=== PATIENT | female | born 1940 ===

== ENCOUNTER 2018-11-28 12:50 | Inpatient (IN) | payer MEDICARE ==
[2018-11-28] MEDS ORDERED: PEPCID IV ONE (13:23)
[2018-11-28] MEDS ORDERED: CARAFATE PO ONE (13:24)
[2018-11-28] MEDS ORDERED: NITROSTAT SL PRN (13:25)
--- NOTE | 2018-11-28 13:25 | Emergency Department Report ---
ED General Adult HPI - General Chief complaint: Abdominal Pain Stated complaint: ABD PAIN Time Seen by Provider: 11/28/18 13:15 Source: patient, EMS (ems notes not available at time of chart dictation), RN notes reviewed, old records reviewed Mode of arrival: Stretcher Limitations: Physical Limitation - History of Present Illness Initial comments: Nephrology: Dr. Dacosta The patient is an 78-year-old female. The patient is somewhat of a poor histori an. She has a past medical history of end-stage renal disease, on dialysis Friday, , Friday. Also has a history of hypertension, hypothyroidism, presumed GERD, gastritis. As per review of old medical records, the patient has been on systemic anticoagulation in the past, eliquis, although she is not sure why. As far as the patient can recall, she's not had a DVT or pulmonary embolus She has not had atrial fibrillation that she can recall. Prior medical records did not specifically indicate why she is taking this medication. Patient reports being in her usual state of health, when she was at dialysis today, and began to have subxiphoid, epigastric pain. This pain is intermittent, it does not radiate to the back, arms or neck. There is no vomiting or diaphoresis. This is chronic shortness of breath. She reports no fevers or chills. She thinks she has slight fluid on her lungs but is not sure. She denies urinary symptoms. She reports this has not happened to her in the past. Review of her medication list indicates that she is still taking systemic anticoagulation. -: Sudden Location: abdomen Radiation: non-radiation Quality: aching, other Consistency: intermittent Improves with: none Worsens with: none Associated Symptoms: cough, loss of appetite, shortness of breath. denies: confusion, chest pain, diaphoresis, fever/chills, headaches, malaise, nausea/ vomiting, rash, seizure, syncope, weakness - Related Data Home Medications Medication Instructions Recorded Confirmed Last Taken RX: Apixaban [Eliquis] 2.5 09/07/18 09/06/18 RX: Atorvastatin Calcium 40 mg 09/07/18 09/05/18 RX: Febuxostat (Nf) [Uloric (Nf)] 40 09/07/18 Unknown RX: Labetalol [Normodyne TAB] 100 mg PO 09/07/18 09/05/18 RX: Levothyroxine Sodium 125 mcg 09/07/18 09/05/18 RX: Olmesartan (Nf) [Benicar] 100 09/07/18 09/05/18 RX: Pantoprazole [Protonix TAB] 40 mg PO QDAY 09/07/18 09/07/18 Unknown RX: Sevelamer Carbonate [Renvela] 800 mg 09/07/18 09/05/18 RX: amLODIPine [Norvasc] 10 mg PO DAILY 09/07/18 09/07/18 09/05/18 Previous Rx's Medication Instructions Recorded Last Taken Type HYDROcodone/APAP 5-325 [[place] 1 each PO Q6HR PRN #20 tablet 09/07/18 Unknown Rx 5/325] Allergies Allergy/AdvReac Type Severity Reaction Status Date / Time No Known Allergies Allergy Verified 09/04/18 10:58 ED Review of Systems ROS: Stated complaint: ABD PAIN Other details as noted in HPI Constitutional: malaise. denies: fever Eyes: denies: eye discharge ENT: denies: epistaxis Respiratory: cough, shortness of breath Cardiovascular: edema. denies: chest pain Gastrointestinal: abdominal pain Genitourinary: denies: dysuria Musculoskeletal: arthralgia, myalgia Skin: denies: lesions Neurological: weakness Psychiatric: denies: anxiety ED Past Medical Hx - Past Medical History Previous Medical History?: Yes Hx Hypertension: Yes (no antihypertensives today) Hx Heart Attack/AMI: No Hx Congestive Heart Failure: Yes Hx Diabetes: Yes Hx Renal Disease: Yes Hx Sickle Cell Disease: Yes (Has disease or trait-not sure which one) Hx Seizures: No Hx Asthma: Yes (asymptomatic recently; albuterol prn) - Surgical History Past Surgical History?: Yes Hx Pacemaker: No Hx Internal Defibrillator: No - Social History Smoking Status: Never Smoker - Medications Home Medications: Home Medications Medication Instructions Recorded Confirmed Last Taken Type HYDROcodone/APAP 5-325 [[facility] 1 each PO Q6HR PRN #20 tablet 09/07/18 Unknown Rx 5/325] RX: Apixaban [Eliquis] 2.5 09/07/18 09/06/18 History RX: Atorvastatin Calcium 40 mg 09/07/18 09/05/18 History RX: Febuxostat (Nf) [Uloric (Nf)] 40 09/07/18 Unknown History RX: Labetalol [Normodyne TAB] 100 mg PO 09/07/18 09/05/18 History RX: Levothyroxine Sodium 125 mcg 09/07/18 09/05/18 History RX: Olmesartan (Nf) [Benicar] 100 09/07/18 09/05/18 History RX: Pantoprazole [Protonix TAB] 40 mg PO QDAY 09/07/18 09/07/18 Unknown History RX: Sevelamer Carbonate [Renvela] 800 mg 09/07/18 09/05/18 History RX: amLODIPine [Norvasc] 10 mg PO DAILY 09/07/18 09/07/18 09/05/18 History ED Physical Exam - General Limitations: Physical Limitation General appearance: alert, anxious, obese - Head Head exam: Present: atraumatic, normocephalic - Eye Eye exam: Present: normal appearance, EOMI. Absent: nystagmus - ENT ENT exam: Present: normal exam, normal orophraynx, mucous membranes moist, normal external ear exam - Neck Neck exam: Present: normal inspection, full ROM. Absent: tenderness, meningismus - Respiratory Respiratory exam: Present: rhonchi. Absent: wheezes, rales, stridor - Cardiovascular Cardiovascular Exam: Present: regular rate, normal rhythm, normal heart sounds. Absent: bradycardia, tachycardia, irregular rhythm, systolic murmur, diastolic murmur, rubs, gallop - GI/Abdominal GI/Abdominal exam: Present: soft. Absent: distended, tenderness, guarding, rebound, rigid, pulsatile mass - Extremities Exam Extremities exam: Present: normal inspection (left upper extremity fistula noted, with no redness, pus or streaking. Muscular compartment soft.), pedal edema, other (2+ pulses noted in the bilateral upper, lower extremities. Compartments soft. No long bony tenderness. The pelvis is stable.). Absent: calf tenderness - Back Exam Back exam: Present: normal inspection, full ROM. Absent: tenderness, CVA tenderness (R), paraspinal tenderness, vertebral tenderness - Neurological Exam Neurological exam: Present: alert, other (Extraocular movements intact. Tongue midline. No facial droop. Facial sensation intact to light touch in the V1, V2, V3 distribution bilaterally. 5 and 5 strength in 4 extremities.. Sensation is intact to light touch in 4 extremities.). Absent: motor sensory deficit - Psychiatric Psychiatric exam: Present: normal affect, normal mood - Skin Skin exam: Present: warm, dry, intact, normal color. Absent: rash ED Course Vital Signs 11/28/18 11/28/18 11/28/18 12:58 13:00 13:04 Temperature 98 F Pulse Rate 70 72 Respiratory 18 18 Rate Blood Pressure 152/57 O2 Sat by Pulse 99 99 99 Oximetry 11/28/18 11/28/18 11/28/18 13:15 13:30 14:00 Temperature Pulse Rate 69 Respiratory 18 16 Rate Blood Pressure 149/60 152/57 O2 Sat by Pulse 98 98 99 Oximetry 11/28/18 11/28/18 11/28/18 14:30 15:10 15:30 Temperature Pulse Rate Respiratory Rate Blood Pressure 149/60 149/60 149/60 O2 Sat by Pulse 96 99 95 Oximetry 11/28/18 11/28/18 11/28/18 15:41 16:00 16:20 Temperature 97.8 F Pulse Rate 76 72 Respiratory 14 14 Rate Blood Pressure 143/59 143/59 O2 Sat by Pulse 100 100 Oximetry 11/28/18 11/28/18 11/28/18 16:30 16:40 17:05 Temperature 98.0 F Pulse Rate 73 70 70 Respiratory 12 15 20 Rate Blood Pressure 143/56 143/56 166/62 O2 Sat by Pulse 84 95 Oximetry 11/28/18 11/28/18 11/28/18 17:27 17:30 17:40 Temperature Pulse Rate Respiratory Rate Blood Pressure 111/57 111/57 O2 Sat by Pulse 93 96 99 Oximetry 11/28/18 17:50 Temperature Pulse Rate Respiratory Rate Blood Pressure 111/57 O2 Sat by Pulse 100 Oximetry - Reevaluation(s) Reevaluation #1: 11/28/18 14:09 Differential diagnosis, including but not limited to: GERD, gastritis, hiatal hernia, pancreatitis, fluid overload, hyperkalemia, pneumonia, urinary tract infection, acute coronary syndrome Assessment and plan: 78-year-old female, with nonspecific epigastric pain, intermittent since dialysis, afebrile, with reassuring vital signs, reportedly on systemic anticoagulation, without tachypnea, tachycardia, or hypoxia. Doubt pulmonary embolus. We'll treat the patient's symptoms supportively. We will obtain CT scan of the abdomen and pelvis. We will obtain x-ray of the chest. 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 Reevaluation #2: 11/28/18 15:14 The patient was a very difficult IV stick for phlebotomy. Laboratory studies demonstrate uremia, azotemia, lactic acidosis, elevated troponin and elevated lipase. Elevated troponin likely secondary to renal insufficiency, but no recent cardiac risk stratification has been noted at this hospital, we do not have prior values to compare to. Patient had a very prolonged tourniquet time secondary to being a difficult intravenous stick, and this is the most likely reason for her elevated lactic acid. Clinically doubt bacteremic illness at this time. Elevated lipase nonspecific, given epigastric pain, may have mild pancreatitis. CT scan interpretation is pending. Discussed with nephrology on-call, Dr. Staples, we will admit the patient to medical service for a cardiac risk stratification, symptom control, nephrology to follow in consultation, and will arrange inpatient dialysis. Hospital physician is paged to arrange admission. Reevaluation #3: 11/28/18 15:34 Laboratory studies also demonstrate metabolic acidosis, anion gap acidosis, likely secondary to renal insufficiency. Case is presented to the Hospital physician, Dr. Fernando, who has accepted the patient to the medical service. Reevaluation #4: 11/28/18 16:01 CT scan report is reviewed and appreciated. Suggestion of right lower lobe pneumonia is noted. Nonspecific biliary findings noted. Blood cultures, empiric antibiotic therapy ordered. Right upper quadrant ultrasound ordered. Discussed these findings with the admitting hospital physician, who agrees to follow up on ultrasound - EJ/Peripheral Line Neck L Time Out Performed: Yes Indications: nurses unable to establis Skin Cleansed in Sterile Fashion: Yes Size: 20 Dressing Placed: Tegaderm Patient Tolerated Procedure: well ED Medical Decision Making - Lab Data Result diagrams: 11/29/18 04:05 11/29/18 04:05 Vital Signs 11/28/18 11/28/18 13:04 13:15 Temperature 98 F Pulse Rate 72 Respiratory 18 18 Rate Blood Pressure 152/57 O2 Sat by Pulse 99 98 Oximetry - EKG Data -: EKG Interpreted by Mo EKG shows normal: sinus rhythm Rate: normal - EKG Data 11/28/18 14:10 Sinus, 70 bpm, left axis deviation, QTC prolonged, poor R-wave progression, motion artifact, T-wave inversions in the lateral leads, abnormal EKG, this is not consistent with ST elevation myocardial infarction, appears unchanged when compared to prior EKG from September 2018. Not consistent with ST elevation WI. - Radiology Data Radiology results: pending Critical care attestation.: If time is entered above; I have spent that time in minutes in the direct care of this critically ill patient, excluding procedure time. ED Disposition Clinical Impression: ESRD (end stage renal disease) on dialysis, Abdominal pain Disposition: OP ADMIT IP TO THIS HOSP Is pt being admited?: Yes Does the pt Need Aspirin: No Condition: Fair
[2018-11-28 14:59] LABS: Albumin 3.7 g/dL (3.9-5); Calcium 7.8 mg/dL (8.4-10.2)
[2018-11-28 15:07] LABS: Basophils # (Auto) 0.1 K/mm3 (0.0-0.1); Basophils % (Auto) 1.2 % (0.0-1.8); Eosinophils # (Auto) 0.2 K/mm3 (0.0-0.4); Eosinophils % (Auto) 2.3 % (0.0-4.3); Hematocrit 40.4 % (30.3-42.9); Lymphocytes # (Auto) 2.4 K/mm3 (1.2-5.4); Lymphocytes % (Auto) 25.1 % (13.4-35.0); Mean Corpuscular HGB Conc 32 % (30-34); Mean Corpuscular Volume 109 fl (79-97); Monocytes # (Auto) 0.9 K/mm3 (0.0-0.8); Monocytes % (Auto) 9.8 % (0.0-7.3); Platelet Count 217 K/mm3 (140-440); Red Cell Distribution Width 15.3 % (13.2-15.2)
--- NOTE | 2018-11-28 15:20 | XRay Report ---
FINAL REPORT EXAM: XR CHEST 1V AP HISTORY: dyspnea esrd TECHNIQUE: Frontal chest radiograph. PRIORS: 09/07/2018. FINDINGS: Right IJ tunnel dialysis catheter tip projects in the right atrium. Unchanged aortic calculi. Unchang ed mild cardiomegaly. No focal consolidation. No pleural effusion. No pneumothorax. No acute osseous abnormality. IMPRESSION: No acute cardiopulmonary process. Unchanged mild cardiomegaly.
--- NOTE | 2018-11-28 15:38 | History and Physical Report ---
History of Present Illness Chief complaint: I feel sick History of present illness: 78 YO Female with ESRD on HD (T,R,Sa), Hypothyroidism, SLE, Asthma, HTN, HLD, Anxiety, Anemia, CHF, DM presents to ED for evaluation. Pt states that she has been "feeling sick" over the past 4 days. Pt states that she went to her sched uled dialysis appointment today and subsequently began to experience abdominal pain. Pt states that her pain was 5/10, intermittent, localized to the epigastric region. EMS notified, and patient transported to [facility] for further care and evaluation. . Pt seen and evaluated in ED and found to have RLL Pneumonia, ESRD, Acidosis, and Biliary obstruction. Pt admitted to [facility] unit. Pt denies fever, chills, CP, Palpitations, NVD, Headache, Trauma, productive cough, or recent ill contacts. Nephrology consulted for dialysis. GI consulted for biliary obstruction. Pneumonia protocol initiated. Past History Past Medical History: diabetes, ESRD, heart failure, hypertension, hyperlipidemia, hypothyroidism Past Surgical History: Other (AV Fistula Placement) Social history: single. denies: smoking, alcohol abuse, prescription drug abuse Family history: diabetes, hypertension Medications and Allergies Allergies Allergy/AdvReac Type Severity Reaction Status Date / Time No Known Allergies Allergy Verified 09/04/18 10:58 Home Medications Medication Instructions Recorded Confirmed Last Taken Type Apixaban [Eliquis] 2.5 09/07/18 09/06/18 History Atorvastatin Calcium 40 mg 09/07/18 09/05/18 History Febuxostat (Nf) [Uloric (Nf)] 40 09/07/18 Unknown History HYDROcodone/APAP 5-325 [[place] 1 each PO Q6HR PRN #20 tablet 09/07/18 Unknown Rx 5/325] Labetalol [Normodyne TAB] 100 mg PO 09/07/18 09/05/18 History Levothyroxine Sodium 125 mcg 09/07/18 09/05/18 History Olmesartan (Nf) [Benicar] 100 09/07/18 09/05/18 History Pantoprazole [Protonix TAB] 40 mg PO QDAY 09/07/18 09/07/18 Unknown History Sevelamer Carbonate [Renvela] 800 mg 09/07/18 09/05/18 History amLODIPine [Norvasc] 10 mg PO DAILY 09/07/18 09/07/18 09/05/18 History Active Meds: Active Medications Nitroglycerin (Nitrostat) 0.4 mg SL .Q5MIN PRN PRN Reason: Chest Pain Review of Systems Constitutional: other (feeling sick), no weight loss, no weight gain, no fever, no chills Ears, nose, mouth and throat: no ear pain, no ear discharge, no tinnitis, no decreased hearing Breasts: no change in shape, no swelling, no mass Cardiovascular: no chest pain, no orthopnea, no palpitations, no rapid/irregular heart beat, no edema Respiratory: no cough, no cough with sputum, no excessive sputum, no hemoptysis, no shortness of breath Gastrointestinal: abdominal pain, no nausea, no vomiting, no diarrhea Genitourinary Female: no pelvic pain, no flank pain, no menorrhagia, no dysuria, no urinary frequency, no urgency Rectal: no pain, no incontinence, no bleeding Musculoskeletal: no neck stiffness, no neck pain, no shooting arm pain, no arm numbness/tingling, no low back pain, no shooting leg pain Integumentary: no rash, no pruritis, no redness, no sores Neurological: no head injury, no transient paralysis, no paralysis, no weakness, no parathesias, no numbness Psychiatric: no anxiety, no memory loss, no change in sleep habits, no sleep disturbances, no insomnia Endocrine: no cold intolerance, no heat intolerance, no polyphagia, no excessive thirst Hematologic/Lymphatic: no easy bruising, no easy bleeding, no lymphadenopathy, no lymphedema Allergic/Immunologic: no urticaria, no allergic rhinitis, no persistent infections, no anaphylaxis, no angioedema Exam - Constitutional Vitals: Temp Pulse Resp BP Pulse Ox 98 F 72 18 152/57 98 11/28/18 13:04 11/28/18 13:04 11/28/18 13:15 11/28/18 13:04 11/28/18 13:15 General appearance: Present: mild distress - EENT Eyes: Present: PERRL ENT: hearing intact, clear oral mucosa - Neck Neck: Present: supple, normal ROM - Respiratory Respiratory effort: normal Respiratory: right: diminished, rhonchi - Cardiovascular Heart Sounds: Present: S1 & S2. Absent: rub, click - Extremities Extremities: pulses symmetrical Extremity abnormal: edema Peripheral Pulses: within normal limits - Abdominal General gastrointestinal: Present: soft, non-tender, non-distended, normal bowel sounds Female genitourinary: Present: normal - Integumentary Integumentary: Present: clear, warm, dry - Musculoskeletal Musculoskeletal: gait normal, strength equal bilaterally - Psychiatric Psychiatric: appropriate mood/affect, intact judgment & insight - Neurologic Neurologic: CNII-XII intact, moves all extremities Results - Labs CBC & Chem 7: 11/28/18 14:34 11/28/18 14:34 Labs: Abnormal lab results 11/28/18 11/28/18 11/28/18 Range/Units 14:34 14:34 14:34 MCV 109 H (79-97) fl MCH 35 H (28-32) pg RDW 15.3 H (13.2-15.2) % [place] % (Auto) 9.8 H (0.0-7.3) % [place] # 0.9 H (0.0-0.8) K/mm3 Sodium 135 L (137-145) mmol/L Chloride 94.6 L (98-107) mmol/L BUN 58 H (7-17) mg/dL Creatinine 6.8 H (0.7-1.2) mg/dL Glucose 143 H (65-100) mg/dL Lactic Acid 2.60 H* (0.7-2.0) mmol/L Calcium 7.8 L (8.4-10.2) mg/dL Troponin T 0.113 H* (0.00-0.029) ng/mL Albumin 3.7 L (3.9-5) g/dL Lipase 112 H (13-60) units/L Assessment and Plan - Patient Problems (1) Pneumonia Current Visit: Yes Status: Acute Qualifiers: Laterality: right Lung location: lower lobe of lung Plan to address problem: Pneumonia protocol: Iv antibiotic therapy, supplemental oxygen, nebulizer therapy, blood cultures, chest x ray (2) ESRD (end stage renal disease) on dialysis Current Visit: No Status: Acute Plan to address problem: Nephrology consulted in ED, dialysis as per renal team (3) Biliary obstruction Current Visit: Yes Status: Acute Plan to address problem: CT ABdomen/Pelvis, Ultrasound abdomen, GI consulted in ED (4) CHF (congestive heart failure) Current Visit: No Status: Acute Qualifiers: Heart failure type: diastolic Heart failure chronicity: acute Qualified Code(s): I50.31 - Acute diastolic (congestive) heart failure Plan to address problem: Strict I/O, Daily weight, monitor uop q shift, chest x ray, supplemental oxygen, afterload reduction, monitor bp q shift, dialysis as per renal team. (5) DVT prophylaxis Current Visit: No Status: Acute Plan to address problem: SCD to BLE while in bed.
[2018-11-28] MEDS ORDERED: ZOFRAN IV PRN (15:40)
[2018-11-28] MEDS ORDERED: TYLENOL PO PRN (15:40)
[2018-11-28] MEDS ORDERED: SODIUM CHLORIDE FLUSH SYRINGE 10 ML IV PRN (15:40)
[2018-11-28] MEDS ORDERED: PROVENTIL IH PRN (15:40)
--- NOTE | 2018-11-28 15:48 | Cat Scan Report ---
FINAL REPORT EXAM: CT ABDOMEN PELVIS WO CON HISTORY: abd pain TECHNIQUE: CT of the abdomen and pelvis was performed without intravenous contrast. Reconstructions were included in the coronal and sagittal planes. PRIORS: None. FINDINGS: Lower thorax: Mild bibasilar atelectasis is seen. Patchy ground-glass opacities are seen in the poste rior aspect of the right lower lobe. Moderate coronary artery calculi are seen. A small pericardial e ffusion is seen. Liver: The liver is normal in attenuation. No intrahepatic biliary duct dilation. There is a simple r ight hepatic cyst. Gallbladder/ biliary system: The gallbladder is collapsed and not well evaluated. There is suggestion of mild inflammation surrounding the gallbladder. The common bile duct is likely dilated measuring u p to 12 millimeters. Spleen: Calcified splenic granulomas are seen. Pancreas: There is a heterogeneous cystic appearing lesion within pancreatic head. There is also a cy stic lesion in the pancreatic body measuring 1.6 x 1.3 centimeters. The lesion in the head of the [place] cre[place] is more difficult to measure and appears multi lobulated. Kidneys: There is a hyperdense left superior pole renal lesion measuring 8 millimeters. Several tiny hyperdense right renal lesions are seen. The kidneys appear small in size. No hydronephrosis. No dilia l or ureteral calcifications. Adrenal glands: There is a left adrenal lesion with Hounsfield unit characteristics of an adrenal chantelle noma measuring 2.0 centimeters. No right adrenal lesions. Vasculature: The abdominal aorta is nondilated. Atherosclerotic calculi are seen in the abdominal aor ta. Lymph nodes: No enlarged lymph nodes are seen in the abdomen or pelvis. Bowel, mesentery, peritoneum: No bowel obstruction. No free fluid or free air. The appendix was not d efinitively seen. Colonic diverticulosis is seen. No evidence of diverticulitis. No bowel wall thicke samuel. Urinary bladder: No filling defects are seen. Pelvis: Several probable calcified uterine fibroids are seen. Abdominal wall: Multiple small fat containing anterior abdominal wall hernias are seen. Bones: Degenerative changes are seen in the spine. Right femoral hardware is seen. A left hip prosthe sis is present. There is severe diffuse osteopenia. Probable chronic L1 compression fracture is seen. IMPRESSION: 1. Multiple nonspecific pancreatic cysts. Recommend further evaluation with pancreatic protocol CT or MRI with and without contrast. 2. Bilateral hyperdense renal lesions are incompletely characterized on this study. Recommend further evaluation with dedicated renal CT or MRI. These can be further assessed on the pancreatic imaging. 3. Left adrenal adenoma. 4. Colonic diverticulosis without diverticulitis. 5. Collapsed gallbladder with suggestion of surrounding inflammation. Consider further evaluation wit h right upper quadrant ultrasound. 6. Dilated common bile duct. If there is clinical concern for biliary obstruction, further evaluation with MRCP could be performed. 7. Probable calcifying uterine fibroids. 8. Coronary artery calculi and small pericardial effusion. 9. Bibasilar atelectasis with ground-glass opacities in the posterior aspect of the right lower lobe which may reflect pneumonia versus atelectasis. 10. Probable chronic L1 compression fracture. 11. Simple right hepatic cyst.
[2018-11-28 15:57] LABS: Bilirubin,Urine NEG (Negative); Blood,Urine NEG (Negative); Color,Urine Yellow (Yellow); Urobilinogen,Urine < 2.0 mg/dL (<2.0)
[2018-11-28 15:58] LABS: Chol/HDL Ratio 2.76 %
[2018-11-28] MEDS ORDERED: LEVAQUIN 500MG/100ML 500 MG/100 ML BAG IV ONE ×2 (15:59→23:00)
[2018-11-28] MEDS ORDERED: FLAGYL 500 MG/100 ML 500 MG/100 ML BAG IV ONE ×2 (15:59→23:00)
[2018-11-28] MEDS: SODIUM CHLORIDE FLUSH SYRINGE 10 ML IV SCH (21:11)
[2018-11-29 05:05] LABS: Calcium 7.6 mg/dL (8.4-10.2)
[2018-11-29 05:07] LABS: Basophils # (Auto) 0.1 K/mm3 (0.0-0.1); Eosinophils # (Auto) 0.3 K/mm3 (0.0-0.4); Eosinophils % (Auto) 2.5 % (0.0-4.3); Hemoglobin 11.3 gm/dl (10.1-14.3); Lymphocytes # (Auto) 2.8 K/mm3 (1.2-5.4); Lymphocytes % (Auto) 25.8 % (13.4-35.0); Mean Corpuscular HGB Conc 32 % (30-34); Mean Corpuscular Volume 107 fl (79-97); Monocytes # (Auto) 1.1 K/mm3 (0.0-0.8); Monocytes % (Auto) 10.3 % (0.0-7.3); Platelet Count 224 K/mm3 (140-440); Red Blood Count 3.26 M/mm3 (3.65-5.03); Red Cell Distribution Width 14.4 % (13.2-15.2)
--- NOTE | 2018-11-29 07:54 | Progress Note ---
Assessment and Plan Assessment and plan: 78 YO Female with ESRD on HD (T,R,Sa), Hypothyroidism, SLE, Asthma, HTN, HLD, Anxiety, Anemia, CHF, DM presents to ED for evaluation. Pt states that she has been "feeling sick" over the past 4 days. Pt states that she went to her scheduled dialysis appointment today and subsequently began to experience a bdominal pain. Per nursing tiage documentation "Patient c/o upper abdominal pain after being on hemodialysis for 1.5 hr.Abdomen soft,denies nausea. Expiratory wheexing noted" Pt states that her pain was 5/10, intermittent, localized to the epigastric region. EMS notified, and patient transported to [facility] for further care and evaluation. Pt seen and evaluated in ED and found to have RLL Pneumonia, ESRD, Acidosis, and Biliary obstruction. Pt admitted to [facility] unit. Pt denies fever, chills, CP, Palpitations, NVD, Headache, Trauma, productive cough, or recent ill contacts. Nephrology consulted for dialysis. GI consulted for biliary obstruction. While chest xray is normal patient had a CT abdomen and pelvis with multiple mirage of problems identified. Peritoneal irritation ?etiology. Multiple non specific pancreatic Cyst-?PANCREATITIS Dilated CBD Colonic Diverticulosis Possible Acute Cholecystsis Calcifying uterine fibroids L1 compression fracture- Chronic Hepatic Cyst-Right side Right lobar atalectasis with ground glass opacity- Doubt pneumonia- No fever, no white count Chronic shortness of breath ESRD on HD- TTS Stable Congestive heart failure-Diastolic Type 2 NSTEMI GERD HTN Hypothyrodisim Plan Supportive care Nephrology, GI and Cardiac consult Ultrasound abdomen- complete, evaluate Gallbladder and pancreas. Defer MRCP decision to GI if needed Incentive spirometer Trend lipase Doubt pneumonia will give one more day of abx and then hold Pain control PRN Nebs Obtain complete med rec. Called family DVT/GI prophy History Interval history: Patient seen and examined today, Denies any abdominal pain. Hospitalist Physical - Physical exam Narrative exam: VITAL SIGNS: Reviewed. GENERAL: The patient appeared well nourished and normally developed. Vital signs as documented. HEAD: No signs of head trauma. EYES: Pupils are equal. Extraocular motions intact. EARS: Hearing grossly intact. MOUTH: Oropharynx is normal. NECK: No adenopathy, no JVD. CHEST: Chest with clear breath sounds bilaterally. No wheezes, rales, or rhonchi. CARDIAC: Regular rate and rhythm. S1 and S2, without murmurs, gallops, or rubs. VASCULAR: No Edema. Peripheral pulses normal and equal in all extremities. ABDOMEN: Soft, without detectable tenderness. No sign of distention. No rebound or guarding, and no masses palpated. Bowel Sounds normal. MUSCULOSKELETAL: Good range of motion of all major joints. Extremities without clubbing, cyanosis or edema. NEUROLOGIC EXAM: Alert and oriented x 3. No focal sensory or strength deficits. Speech normal. Follows commands. PSYCHIATRIC: Mood normal. SKIN: Right chest WALL Port - Constitutional Vitals: Temp Pulse Resp BP Pulse Ox 98.4 F 67 18 136/58 100 11/29/18 02:21 11/29/18 02:21 11/29/18 02:21 11/29/18 02:21 11/29/18 02:21 General appearance: Present: mild distress Results - Labs CBC & Chem 7: 11/29/18 04:05 11/29/18 04:05 Labs: Laboratory Last Values WBC 10.9 K/mm3 (4.5-11.0) 11/29/18 04:05 RBC 3.26 M/mm3 (3.65-5.03) L 11/29/18 04:05 Hgb 11.3 gm/dl (10.1-14.3) 11/29/18 04:05 Hct 35.0 % (30.3-42.9) 11/29/18 04:05 MCV 107 fl (79-97) H 11/29/18 04:05 MCH 35 pg (28-32) H 11/29/18 04:05 MCHC 32 % (30-34) 11/29/18 04:05 RDW 14.4 % (13.2-15.2) 11/29/18 04:05 Plt Count 224 K/mm3 (140-440) 11/29/18 04:05 Lymph % (Auto) 25.8 % (13.4-35.0) 11/29/18 04:05 Placer % (Auto) 10.3 % (0.0-7.3) H 11/29/18 04:05 Eos % (Auto) 2.5 % (0.0-4.3) 11/29/18 04:05 Baso % (Auto) Nursing Consultant 11/29/18 04:05 Lymph # 2.8 K/mm3 (1.2-5.4) 11/29/18 04:05 Placer # 1.1 K/mm3 (0.0-0.8) H 11/29/18 04:05 Eos # 0.3 K/mm3 (0.0-0.4) 11/29/18 04:05 Baso # 0.1 K/mm3 (0.0-0.1) 11/29/18 04:05 Seg Neutrophils % 60.3 % (40.0-70.0) 11/29/18 04:05 Seg Neutrophils # 6.6 K/mm3 (1.8-7.7) 11/29/18 04:05 Sodium 137 mmol/L (137-145) 11/29/18 04:05 Potassium 4.8 mmol/L (3.6-5.0) 11/29/18 04:05 Chloride 95.4 mmol/L (98-107) L 11/29/18 04:05 Carbon Dioxide 26 mmol/L (22-30) 11/29/18 04:05 Anion Gap 20 mmol/L 11/29/18 04:05 BUN 71 mg/dL (7-17) H 11/29/18 04:05 Creatinine 7.7 mg/dL (0.7-1.2) H 11/29/18 04:05 Estimated GFR 5 ml/min 11/29/18 04:05 BUN/Creatinine Ratio 9 % 11/29/18 04:05 Glucose 89 mg/dL (65-100) 11/29/18 04:05 Lactic Acid 1.60 mmol/L (0.7-2.0) 11/28/18 15:26 Calcium 7.6 mg/dL (8.4-10.2) L 11/29/18 04:05 Total Bilirubin 0.30 mg/dL (0.1-1.2) 11/28/18 14:34 AST 31 units/L (5-40) 11/28/18 14:34 ALT 25 units/L (7-56) 11/28/18 14:34 Alkaline Phosphatase 99 units/L (35-129) 11/28/18 14:34 Troponin T 0.113 ng/mL (0.00-0.029) H* 11/28/18 14:34 Total Protein 7.6 g/dL (6.3-8.2) 11/28/18 14:34 Albumin 3.7 g/dL (3.9-5) L 11/28/18 14:34 Albumin/Globulin Ratio 0.9 % 11/28/18 14:34 Triglycerides 319 mg/dL (2-149) H 11/28/18 14:34 Cholesterol 152 mg/dL (50-199) 11/28/18 14:34 LDL Cholesterol Direct 87 mg/dL (50-130) 11/28/18 14:34 HDL Cholesterol 55 mg/dL (40-59) 11/28/18 14:34 Cholesterol/HDL Ratio 2.76 % 11/28/18 14:34 Lipase 112 units/L (13-60) H 11/28/18 14:34 Urine Color Yellow (Yellow) 11/28/18 15:45 Urine Turbidity Clear (Clear) 11/28/18 15:45 Urine pH 7.0 (5.0-7.0) 11/28/18 15:45 Ur Specific [place] 1.011 (1.003-1.030) 11/28/18 15:45 Urine Protein 30 mg/dl mg/dL (Negative) 11/28/18 15:45 Urine Glucose (UA) Neg mg/dL (Negative) 11/28/18 15:45 Urine Ketones Neg mg/dL (Negative) 11/28/18 15:45 Urine Blood Neg (Negative) 11/28/18 15:45 Urine Nitrite Neg (Negative) 11/28/18 15:45 Urine Bilirubin Neg (Negative) 11/28/18 15:45 Urine Urobilinogen < 2.0 mg/dL (<2.0) 11/28/18 15:45 Ur Leukocyte Esterase Neg (Negative) 11/28/18 15:45 Urine WBC (Auto) 1.0 /HPF (0.0-6.0) 11/28/18 15:45 Urine RBC (Auto) 1.0 /HPF (0.0-6.0) 11/28/18 15:45 U Epithel Cells (Auto) 3.0 /HPF (0-13.0) 11/28/18 15:45
[2018-11-29] MEDS ORDERED: ROCEPHIN/NS 2 GM/100 ML 2 GM/100 ML BAG IV SCH (10:00)
[2018-11-29] MEDS ORDERED: SYNTHROID PO SCH (10:00)
--- NOTE | 2018-11-29 10:05 | Ultrasound Report ---
FINAL REPORT EXAM: US ABDOMEN LIMITED HISTORY: abd pain TECHNIQUE: Limited abdomen ultrasound. PRIORS: None currently available. FINDINGS: Gallbladder: No gallstones or sludge. Gallbladder wall is thickened measuring 8 mm. Common bile duct measures 7.6 mm which is dilated. No distinct stones or lesions. Pancreas is obscured by overlying bowel gas. Right kidney: 6.7 cm. Unremarkable. Proximal aorta measures 2.1 cm. IMPRESSION: Gallbladder wall thickening and dilated common bile duct. Please correlate clinically for possible ch olecystitis. HIDA scan may be helpful if clinically indicated.
[2018-11-29] MEDS: NORMODYNE PO SCH ×2 (10:16→21:32)
[2018-11-29] MEDS: PROTONIX PO SCH (10:16)
[2018-11-29] MEDS: NORVASC PO SCH (10:16)
[2018-11-29] MEDS: SODIUM CHLORIDE FLUSH SYRINGE 10 ML IV SCH ×2 (10:17→21:36)
[2018-11-29] MEDS: ZITHROMAX 500 MG in NACL 0.9% 250ML 250 ML IV SCH ×3 (10:57→11:20)
[2018-11-29] MEDS: ROCEPHIN/NS 1 GM/50 ML 1 GM/50 ML BAG IV SCH (11:00)
[2018-11-29] MEDS: SYNTHROID PO SCH (11:07)
[2018-11-29] MEDS: RENVELA PO SCH ×2 (11:22→17:53)
--- NOTE | 2018-11-29 12:06 | Consultation ---
History of Present Illness - Reason for Consult Consult date: 11/29/18 end stage renal disease Requesting physician: ED YI - History of Present Illness The patient is an 78-year-old female. The patient is somewhat of a poor historian. She has a past medical history of end-stage renal disease, on dialysis Friday, , Friday. Also has a history of hypertension, hypothyroidism, presumed GERD, gastritis. As per review of old medical records, the patient has been on systemic anticoagulation in the past, eliquis, although she is not sure why. As far as the patient can recall, she's not had a DVT or pulmonary embolus She has not had atrial fibrillation that she can recall. Prior medical records did not specifically indicate why she is taking this medication. Patient reports being in her usual state of health, when [facility], and began to have subxiphoid, epigastric pain. This pain is intermittent, it does not radiate to the back, arms or neck. There is no vomiting or diaphoresis. This is chronic shortness of breath. She reports no fevers or chills. She thinks she has slight fluid on her lungs but is not sure. She denies urinary symptoms. She reports this has not happened to her in the past. Review of her medication list indicates that she is still taking systemic anticoagulation. -: Sudden Location: abdomen Radiation: non-radiation Quality: aching, other Consistency: intermittent Improves with: none Worsens with: none Associated Symptoms: cough, loss of appetite, shortness of breath. denies: confusion, chest pain, diaphoresis, fever/chills, headaches, malaise, nausea/vomiting, rash, seizure, syncope, weakness ROS: Stated complaint: ABD PAIN Other details as noted in HPI Constitutional: malaise. denies: fever Eyes: denies: eye discharge ENT: denies: epistaxis Respiratory: cough, shortness of breath Cardiovascular: edema. denies: chest pain Gastrointestinal: abdominal pain Genitourinary: denies: dysuria Musculoskeletal: arthralgia, myalgia Skin: denies: lesions Neurological: weakness Psychiatric: denies: anxiety - Past Medical History Previous Medical History?: Yes Hx Hypertension: Yes (no antihypertensives today) Hx Heart Attack/AMI: No Hx Congestive Heart Failure: Yes Hx Diabetes: Yes Hx Renal Disease: Yes Hx Sickle Cell Disease: Yes (Has disease or trait-not sure which one) Hx Seizures: No Hx Asthma: Yes (asymptomatic recently; albuterol prn) - Surgical History Past Surgical History?: Yes Hx Pacemaker: No Hx Internal Defibrillator: No - Social History Smoking Status: Never Smoker Past History Past Medical History: diabetes, ESRD, heart failure, hypertension, hyperlipidemia, hypothyroidism Past Surgical History: Other (AV Fistula Placement) Social history: single. denies: smoking, alcohol abuse, prescription drug abuse Family history: diabetes, hypertension Medications and Allergies Allergies Allergy/AdvReac Type Severity Reaction Status Date / Time No Known Allergies Allergy Verified 09/04/18 10:58 Home Medications Medication Instructions Recorded Confirmed Last Taken Type Apixaban [Eliquis] 2.5 09/07/18 09/06/18 History Atorvastatin Calcium 40 mg 09/07/18 09/05/18 History Febuxostat (Nf) [Uloric (Nf)] 40 09/07/18 Unknown History HYDROcodone/APAP 5-325 [[place] 1 each PO Q6HR PRN #20 tablet 09/07/18 Unknown Rx 5/325] Labetalol [Normodyne TAB] 100 mg PO 09/07/18 09/05/18 History Levothyroxine Sodium 125 mcg 09/07/18 09/05/18 History Olmesartan (Nf) [Benicar] 100 09/07/18 09/05/18 History Pantoprazole [Protonix TAB] 40 mg PO QDAY 09/07/18 09/07/18 Unknown History Sevelamer Carbonate [Renvela] 800 mg 09/07/18 09/05/18 History amLODIPine [Norvasc] 10 mg PO DAILY 09/07/18 09/07/18 09/05/18 History Active Meds: Active Medications Acetaminophen (Tylenol) 650 mg PO Q4H PRN PRN Reason: Pain MILD(1-3)/Fever >100.5/[place] Last Admin: 11/28/18 22:19 Dose: 650 mg Documented by: Acetaminophen/Hydrocodone Bitart ([place] 5/325) 1 each PO Q6H PRN PRN Reason: Pain Albuterol (Proventil) 2.5 mg IH Q4HRT PRN PRN Reason: Shortness Of Breath Amlodipine Besylate (Norvasc) 10 mg PO DAILY [facility] Last Admin: 11/29/18 10:16 Dose: 10 mg Documented by: Azithromycin 500 mg/ Sodium (Chloride) 250 mls @ 250 mls/hr IV Q24HR [facility]; Protocol Last Admin: 11/29/18 11:20 Dose: 250 mls/hr Documented by: Ceftriaxone Sodium (Rocephin/Ns 1 Gm/50 Ml) 1 gm in 50 mls @ 100 mls/hr IV Q24HR [facility]; Protocol Last Admin: 11/29/18 11:00 Dose: 100 mls/hr Documented by: Labetalol HCl (Normodyne) 100 mg PO BID [facility] Last Admin: 11/29/18 10:16 Dose: 100 mg Documented by: Levothyroxine Sodium (Synthroid) 125 mcg PO DAILY@0600 [facility] Last Admin: 11/29/18 11:07 Dose: 125 mcg Documented by: Nitroglycerin (Nitrostat) 0.4 mg SL .Q5MIN PRN PRN Reason: Chest Pain Ondansetron HCl (Zofran) 4 mg IV Q8H PRN PRN Reason: Nausea And Vomiting Last Admin: 11/28/18 22:20 Dose: 4 mg Documented by: Pantoprazole Sodium (Protonix) 40 mg PO QDAY [facility] Last Admin: 11/29/18 10:16 Dose: 40 mg Documented by: Sevelamer Carbonate (Renvela) 800 mg PO TIDWM [facility] Last Admin: 11/29/18 11:22 Dose: 800 mg Documented by: Sodium Chloride (Sodium Chloride Flush Syringe 10 Ml) 10 ml IV BID [facility] Last Admin: 11/29/18 10:17 Dose: 10 ml Documented by: Sodium Chloride (Sodium Chloride Flush Syringe 10 Ml) 10 ml IV PRN PRN PRN Reason: LINE FLUSH Exam - Vital Signs Vital signs: Vital Signs Pulse Ox 99 11/28/18 12:58 - Physical Exam Narrative exam: General appearance: well-developed, well-nourished EENT: ATNC Respiratory: Clear to Ascultation Heart: regular, S1S2 Gastrointestinal: Present: normal. Absent: tenderness, distended Integumentary: warm and dry Neurologic: no focal deficit Musculoskeletal: Present: other (no edema) Psychiatric: cooperative Results - Lab Results 11/29/18 04:05 11/29/18 04:05 Most recent lab results Calcium 7.6 mg/dL (8.4-10.2) L 11/29/18 04:05 Assessment and Plan Impression: * End stage renal disease * abdominal pain * s/p AVF revision * Accelerated hypertension * Anemia secondary to ESRD * Secondary hyperparathyroidism Plan: * Hemodialysis tomorrow if need otherwise; continue TTS schedule * UF as tolerated * abd pain workup per GI * Continue antiHTN medications * Dose medications for renal function * Renal diet * Epogen TIW prn
--- NOTE | 2018-11-29 12:40 | Consultation ---
History of Present Illness Consult date: 11/29/18 Consult reason: elevated troponin History of present illness: The patient is an 78-year-old woman with end-stage renal disease on he modialysis, chronic hypertension, who complained of abdominal pain and is admitted for further workup of biliary obstruction that was noted on abdominal CT and right upper quadrant ultrasound. Cardiology consultation was requested for evaluation of an isolated elevation of the troponin level. The reason for troponin measurements is not clear, patient has no cardiac symptomatology. There was no chest pain, no shortness of breath, no palpitations and no lower extremity edema. The patient's prior cardiac history or workup is uncertain at this time, her primary mattress filler is Dr. White in [place], but she is unable to articulate details of any prior cardiac history or cardiac workup. She is on oral anticoagulation with Eliquis, among several other medications, but indication is not known to her. On her current EKG she is in a sinus rhythm, single PAC, nonspecific ST and T-wave changes. Past History Past Medical History: diabetes, ESRD, hypertension, hyperlipidemia, hypothyroidism Past Surgical History: Other (AV Fistula Placement) Social history: single. denies: smoking, alcohol abuse, prescription drug abuse Family history: diabetes, hypertension Medications and Allergies Allergies Allergy/AdvReac Type Severity Reaction Status Date / Time No Known Allergies Allergy Verified 09/04/18 10:58 Home Medications Medication Instructions Recorded Confirmed Last Taken Type Apixaban [Eliquis] 2.5 09/07/18 09/06/18 History Atorvastatin Calcium 40 mg 09/07/18 09/05/18 History Febuxostat (Nf) [Uloric (Nf)] 40 09/07/18 Unknown History HYDROcodone/APAP 5-325 [[place] 1 each PO Q6HR PRN #20 tablet 09/07/18 Unknown Rx 5/325] Labetalol [Normodyne TAB] 100 mg PO 09/07/18 09/05/18 History Levothyroxine Sodium 125 mcg 09/07/18 09/05/18 History Olmesartan (Nf) [Benicar] 100 09/07/18 09/05/18 History Pantoprazole [Protonix TAB] 40 mg PO QDAY 09/07/18 09/07/18 Unknown History Sevelamer Carbonate [Renvela] 800 mg 09/07/18 09/05/18 History amLODIPine [Norvasc] 10 mg PO DAILY 09/07/18 09/07/18 09/05/18 History Active Meds: Active Medications Acetaminophen (Tylenol) 650 mg PO Q4H PRN PRN Reason: Pain MILD(1-3)/Fever >100.5/[place] Last Admin: 11/28/18 22:19 Dose: 650 mg Documented by: Acetaminophen/Hydrocodone Bitart ([place] 5/325) 1 each PO Q6H PRN PRN Reason: Pain Albuterol (Proventil) 2.5 mg IH Q4HRT PRN PRN Reason: Shortness Of Breath Amlodipine Besylate (Norvasc) 10 mg PO DAILY [facility] Last Admin: 11/29/18 10:16 Dose: 10 mg Documented by: Azithromycin 500 mg/ Sodium (Chloride) 250 mls @ 250 mls/hr IV Q24HR [facility]; Protocol Last Admin: 11/29/18 11:20 Dose: 250 mls/hr Documented by: Ceftriaxone Sodium (Rocephin/Ns 1 Gm/50 Ml) 1 gm in 50 mls @ 100 mls/hr IV Q24HR [facility]; Protocol Last Admin: 11/29/18 11:00 Dose: 100 mls/hr Documented by: Labetalol HCl (Normodyne) 100 mg PO BID [facility] Last Admin: 11/29/18 10:16 Dose: 100 mg Documented by: Levothyroxine Sodium (Synthroid) 125 mcg PO DAILY@0600 [facility] Last Admin: 11/29/18 11:07 Dose: 125 mcg Documented by: Nitroglycerin (Nitrostat) 0.4 mg SL .Q5MIN PRN PRN Reason: Chest Pain Ondansetron HCl (Zofran) 4 mg IV Q8H PRN PRN Reason: Nausea And Vomiting Last Admin: 11/28/18 22:20 Dose: 4 mg Documented by: Pantoprazole Sodium (Protonix) 40 mg PO QDAY [facility] Last Admin: 11/29/18 10:16 Dose: 40 mg Documented by: Sevelamer Carbonate (Renvela) 800 mg PO TIDWM [facility] Last Admin: 11/29/18 11:22 Dose: 800 mg Documented by: Sodium Chloride (Sodium Chloride Flush Syringe 10 Ml) 10 ml IV BID [facility] Last Admin: 11/29/18 10:17 Dose: 10 ml Documented by: Sodium Chloride (Sodium Chloride Flush Syringe 10 Ml) 10 ml IV PRN PRN PRN Reason: LINE FLUSH Review of Systems Cardiovascular: no chest pain, no orthopnea, no palpitations, no rapid/irregular heart beat, no edema, no syncope, no lightheadedness, no shortness of breath Gastrointestinal: abdominal pain, nausea, vomiting Physical Examination Vital Signs Pulse Ox 99 11/28/18 12:58 General appearance: no acute distress HEENT: Positive: PERRL Neck: Positive: neck supple Cardiac: Positive: Reg Rate and Rhythm Lungs: Positive: clear to auscultation Neuro: Positive: Grossly Intact Abdomen: Positive: Soft Female genitourinary: deferred Skin: Positive: Clear Extremities: Absent: edema Results 11/30/18 09:18 11/30/18 09:13 Cardiac Enzymes 11/28/18 Range/Units 14:34 AST 31 (5-40) units/L Lipids 11/28/18 Range/Units 14:34 Triglycerides 319 H (2-149) mg/dL Cholesterol 152 (50-199) mg/dL HDL Cholesterol 55 (40-59) mg/dL Cholesterol/HDL Ratio 2.76 % CBC 11/28/18 11/29/18 Range/Units 14:34 04:05 WBC 9.5 10.9 (4.5-11.0) K/mm3 RBC 3.70 3.26 L (3.65-5.03) M/mm3 Hgb 13.0 11.3 (10.1-14.3) gm/dl Hct 40.4 35.0 (30.3-42.9) % Plt Count 217 224 (140-440) K/mm3 Lymph # 2.4 2.8 (1.2-5.4) K/mm3 [place] # 0.9 H 1.1 H (0.0-0.8) K/mm3 Eos # 0.2 0.3 (0.0-0.4) K/mm3 Baso # 0.1 0.1 (0.0-0.1) K/mm3 Comprehensive Metabolic Panel 11/28/18 11/29/18 Range/Units 14:34 04:05 Sodium 135 L 137 (137-145) mmol/L Potassium 4.4 4.8 (3.6-5.0) mmol/L Chloride 94.6 L 95.4 L (98-107) mmol/L Carbon Dioxide 22 26 (22-30) mmol/L BUN 58 H 71 H (7-17) mg/dL Creatinine 6.8 H 7.7 H (0.7-1.2) mg/dL Glucose 143 H 89 (65-100) mg/dL Calcium 7.8 L 7.6 L (8.4-10.2) mg/dL AST 31 (5-40) units/L ALT 25 (7-56) units/L Alkaline Phosphatase 99 (35-129) units/L Total Protein 7.6 (6.3-8.2) g/dL Albumin 3.7 L (3.9-5) g/dL EKG interpretations - Telemetry EKG Rhythm: Sinus Rhythm Assessment and Plan - Patient Problems (1) Elevated troponin Current Visit: Yes Status: Acute Plan to address problem: The isolated rising troponin levels is nonspecific in the absence of cardiac symptoms. Elevation is likely due to underlying kidney disease. We will request outpatient records to further define prior cardiac history or workup, otherwise no additional cardiac workup is indicated at this time in the absence of cardiac symptoms. We will defer focused attention on the biliary disease, with internal medicine, gastroenterology and general surgery. If surgery is ultimately indicated, she may require additional cardiac pre-operative evaluation. (2) On continuous oral anticoagulation Current Visit: Yes Status: Acute Plan to address problem: We'll request outpatient records to determine indication for patient's use of chronic oral anticoagulation.
[2018-11-29 15:08] LABS: Creatine Kinase MB 2.3 ng/mL (0.0-4.0)
--- NOTE | 2018-11-29 15:59 | Consultation ---
REFERRING PHYSICIAN: Rigo Sanchez MD INDICATION: 1. Abdominal pain. 2. Abnormal CT scan. HISTORY OF PRESENT ILLNESS: The patient is an 78-year-old female being seen by GI for abdominal pain and abnormal CT scan. The patient is an 78-year-old black female with history of end-stage renal disease, on dialysis, hypothyroidism, asthma, hypertension, anemia, CHF, diabetes. The patient reported that she was feeling sick for 4 days with some epigastric pain. She reports no lower GI symptoms including nausea, vomiting. She reports no history of biliary or pancreatic as well as liver disease. The patient subsequently came to Emergency Room where she had a CT scan, which showed some question of pancreatic lesions, possible cyst versus biliary dilatation. The patient subsequently admitted and GI consulted. The patient reports since that time abdominal pain symptoms have resolved. She denies any other specific GI complaints at this time. PAST MEDICAL HISTORY: 1. Diabetes. 2. End-stage renal disease, on dialysis. 3. CHF. 4. Hypertension. 5. High cholesterol. 6. Hypothyroidism. PAST SURGICAL HISTORY: Status post AV fistula. MEDICATIONS: Reviewed and updated in the chart. ALLERGIES: No drug allergies. SOCIAL HISTORY: Denies alcohol, tobacco or IV drug abuse. FAMILY HISTORY: Negative for colon cancer, IBD, or liver disease. REVIEW OF SYSTEMS: GENERAL: Reports mild weakness. HEENT: No visual complaints or tinnitus. PULMONARY: No shortness of breath. No cough. No chest pain. GASTROINTESTINAL: Reports abdominal pain, resolved. All points of 13-point review of systems otherwise negative. PHYSICAL EXAMINATION: VITAL SIGNS: Temperature of 98.0, pulse 60, respiration 18 and blood pressure 147/60. GENERAL: Fairly nourished female in no acute distress. HEENT: Pupils are equal, round, reactive. PULMONARY: Clear to auscultation bilaterally with mild rhonchi. CARDIOVASCULAR: Regular rhythm. Normal S1 and S2. ABDOMEN: Positive bowel sounds. Soft. SKIN: No obvious rashes. LABORATORY DATA: Pertinent for white count of 10.9, hemoglobin and hematocrit 11.3 and 35.0, platelet count of 224. Chem-7 within normal limits except for BUN and creatinine of 71 and 7.7. LFTs within normal limits. CT scan showed pancreatic lesions, possible cyst as well as somewhat dilated common bile duct and signs of pneumonia. ASSESSMENT AND PLAN: An 78-year-old female with past medical history as noted above, who has some epigastric upper abdominal pain, now resolved and some shortness of breath, now admitted with pneumonia with CT scan showing pancreatic cyst as well as a question of biliary dilatation. The patient denies any current GI symptoms. Management is noted below. PLAN: 1. We will review CT scan, ultrasound as ordered. 2. MRI, MRCP ordered. 3. Follow labs. 4. No plans for endoscopy or interventions at this time. 5. Pneumonia per primary team. 6. We will follow. JOB# [id number] CAB/NTS
[2018-11-29] MEDS: NORCO 5/325 PO PRN (21:32)
[2018-11-30] MEDS: SYNTHROID PO SCH (06:10)
--- NOTE | 2018-11-30 07:51 | Progress Note ---
Assessment and Plan Assessment and plan: 78 YO Female with ESRD on HD (T,R,Sa), Hypothyroidism, SLE, Asthma, HTN, HLD, Anxiety, Anemia, CHF, DM presents to ED for evaluation. Pt states that she has been "feeling sick" over the past 4 days. Pt states that she went to her scheduled dialysis appointment today and subsequently began to experience a bdominal pain. Per nursing tiage documentation "Patient c/o upper abdominal pain after being on hemodialysis for 1.5 hr.Abdomen soft,denies nausea. Expiratory wheexing noted" Pt states that her pain was 5/10, intermittent, localized to the epigastric region. EMS notified, and patient transported to [facility] for further care and evaluation. Pt seen and evaluated in ED and found to have RLL Pneumonia, ESRD, Acidosis, and Biliary obstruction. Pt admitted to [facility] unit. Pt denies fever, chills, CP, Palpitations, NVD, Headache, Trauma, productive cough, or recent ill contacts. Nephrology consulted for dialysis. GI consulted for biliary obstruction. While chest xray is normal patient had a CT abdomen and pelvis with multiple mirage of problems identified. * Patient's respiratory status shows remarkable improvement but imaging studies were concerning for multiple pathology as listed below * Patient is still pending an MRCP * Mildly trend and troponin with no chest pain likely supportive off non-ST elevation type II cardiology is following and we are waiting further workup from the GI and cardiology * Tunnelled Dialysis catheter was removed today Peritoneal irritation ?etiology. Multiple non specific pancreatic Cyst-?PANCREATITIS Dilated CBD Colonic Diverticulosis Possible Acute Cholecystsis Calcifying uterine fibroids L1 compression fracture- Chronic Hepatic Cyst-Right side Right lobar atalectasis with ground glass opacity- Doubt pneumonia- No fever, no white count Chronic shortness of breath ESRD on HD- TTS Stable Congestive heart failure-Diastolic Type 2 NSTEMI GERD HTN Hypothyrodisim Plan Supportive care Nephrology, GI and Cardiac consult noted Ultrasound abdomen- complete, evaluate Gallbladder and pancreas. awaiting repeat an MRCP Incentive spirometer Lipase is trending down patient would know for abdominal pain Discontinue abx and monitor off anbx Pain control PRN Nebs Obtain complete med rec. Called family DVT/GI prophy Discharge based on final GI dissection. History Interval history: Patient seen and examined today, Denies any abdominal pain. ASKING WHEN She can go home Hospitalist Physical - Physical exam Narrative exam: VITAL SIGNS: Reviewed. GENERAL: The patient appeared well nourished and normally developed. Vital signs as documented. HEAD: No signs of head trauma. EYES: Pupils are equal. Extraocular motions intact. EARS: Hearing grossly intact. MOUTH: Oropharynx is normal. NECK: No adenopathy, no JVD. CHEST: Chest with clear breath sounds bilaterally. No wheezes, rales, or rhonc hi. CARDIAC: Regular rate and rhythm. S1 and S2, without murmurs, gallops, or rubs. VASCULAR: Left av fistula No Edema. Peripheral pulses normal and equal in all extremities. ABDOMEN: Soft, without detectable tenderness. No sign of distention. No rebound or guarding, and no masses palpated. Bowel Sounds normal. MUSCULOSKELETAL: Good range of motion of all major joints. Extremities without clubbing, cyanosis or edema. NEUROLOGIC EXAM: Alert and oriented x 3. No focal sensory or strength deficits. Speech normal. Follows commands. PSYCHIATRIC: Mood normal. SKIN: Right chest WALL Port - Constitutional Vitals: Temp Pulse Resp BP Pulse Ox 98.1 F 59 L 18 116/42 99 11/30/18 02:42 11/30/18 02:42 11/30/18 02:42 11/30/18 02:42 11/30/18 02:42 General appearance: Present: mild distress Results - Labs CBC & Chem 7: 11/30/18 09:18 11/30/18 09:13 Labs: Laboratory Last Values WBC 10.9 K/mm3 (4.5-11.0) 11/29/18 04:05 RBC 3.26 M/mm3 (3.65-5.03) L 11/29/18 04:05 Hgb 11.3 gm/dl (10.1-14.3) 11/29/18 04:05 Hct 35.0 % (30.3-42.9) 11/29/18 04:05 MCV 107 fl (79-97) H 11/29/18 04:05 MCH 35 pg (28-32) H 11/29/18 04:05 MCHC 32 % (30-34) 11/29/18 04:05 RDW 14.4 % (13.2-15.2) 11/29/18 04:05 Plt Count 224 K/mm3 (140-440) 11/29/18 04:05 Lymph % (Auto) 25.8 % (13.4-35.0) 11/29/18 04:05 [place] % (Auto) 10.3 % (0.0-7.3) H 11/29/18 04:05 Eos % (Auto) 2.5 % (0.0-4.3) 11/29/18 04:05 Baso % (Auto) General Pediatrician 11/29/18 04:05 Lymph # 2.8 K/mm3 (1.2-5.4) 11/29/18 04:05 [place] # 1.1 K/mm3 (0.0-0.8) H 11/29/18 04:05 Eos # 0.3 K/mm3 (0.0-0.4) 11/29/18 04:05 Baso # 0.1 K/mm3 (0.0-0.1) 11/29/18 04:05 Seg Neutrophils % 60.3 % (40.0-70.0) 11/29/18 04:05 Seg Neutrophils # 6.6 K/mm3 (1.8-7.7) 11/29/18 04:05 Sodium 137 mmol/L (137-145) 11/29/18 04:05 Potassium 4.8 mmol/L (3.6-5.0) 11/29/18 04:05 Chloride 95.4 mmol/L (98-107) L 11/29/18 04:05 Carbon Dioxide 26 mmol/L (22-30) 11/29/18 04:05 Anion Gap 20 mmol/L 11/29/18 04:05 BUN 71 mg/dL (7-17) H 11/29/18 04:05 Creatinine 7.7 mg/dL (0.7-1.2) H 11/29/18 04:05 Estimated GFR 5 ml/min 11/29/18 04:05 BUN/Creatinine Ratio 9 % 11/29/18 04:05 Glucose 89 mg/dL (65-100) 11/29/18 04:05 Lactic Acid 1.60 mmol/L (0.7-2.0) 11/28/18 15:26 Calcium 7.6 mg/dL (8.4-10.2) L 11/29/18 04:05 Total Bilirubin 0.30 mg/dL (0.1-1.2) 11/28/18 14:34 AST 31 units/L (5-40) 11/28/18 14:34 ALT 25 units/L (7-56) 11/28/18 14:34 Alkaline Phosphatase 99 units/L (35-129) 11/28/18 14:34 Total Creatine Kinase 72 units/L (30-135) 11/29/18 14:34 CK-MB (CK-2) 2.3 ng/mL (0.0-4.0) 11/29/18 14:34 CK-MB (CK-2) Rel Index 3.1 (0-4) 11/29/18 14:34 Troponin T 0.123 ng/mL (0.00-0.029) H* 11/29/18 14:34 Total Protein 7.6 g/dL (6.3-8.2) 11/28/18 14:34 Albumin 3.7 g/dL (3.9-5) L 11/28/18 14:34 Albumin/Globulin Ratio 0.9 % 11/28/18 14:34 Triglycerides 319 mg/dL (2-149) H 11/28/18 14:34 Cholesterol 152 mg/dL (50-199) 11/28/18 14:34 LDL Cholesterol Direct 87 mg/dL (50-130) 11/28/18 14:34 HDL Cholesterol 55 mg/dL (40-59) 11/28/18 14:34 Cholesterol/HDL Ratio 2.76 % 11/28/18 14:34 Lipase 93 units/L (13-60) H 11/29/18 14:34 Urine Color Yellow (Yellow) 11/28/18 15:45 Urine Turbidity Clear (Clear) 11/28/18 15:45 Urine pH 7.0 (5.0-7.0) 11/28/18 15:45 Ur Specific [place] 1.011 (1.003-1.030) 11/28/18 15:45 Urine Protein 30 mg/dl mg/dL (Negative) 11/28/18 15:45 Urine Glucose (UA) Neg mg/dL (Negative) 11/28/18 15:45 Urine Ketones Neg mg/dL (Negative) 11/28/18 15:45 Urine Blood Neg (Negative) 11/28/18 15:45 Urine Nitrite Neg (Negative) 11/28/18 15:45 Urine Bilirubin Neg (Negative) 11/28/18 15:45 Urine Urobilinogen < 2.0 mg/dL (<2.0) 11/28/18 15:45 Ur Leukocyte Esterase Neg (Negative) 11/28/18 15:45 Urine WBC (Auto) 1.0 /HPF (0.0-6.0) 11/28/18 15:45 Urine RBC (Auto) 1.0 /HPF (0.0-6.0) 11/28/18 15:45 U Epithel Cells (Auto) 3.0 /HPF (0-13.0) 11/28/18 15:45
[2018-11-30] MEDS: RENVELA PO SCH ×3 (08:20→17:52)
[2018-11-30 09:39] LABS: Hematocrit 33.8 % (30.3-42.9); Mean Corpuscular HGB Conc 33 % (30-34); Mean Corpuscular Volume 107 fl (79-97); Platelet Count 209 K/mm3 (140-440); Red Blood Count 3.16 M/mm3 (3.65-5.03); Red Cell Distribution Width 14.8 % (13.2-15.2)
[2018-11-30 10:03] LABS: Calcium 7.4 mg/dL (8.4-10.2)
[2018-11-30] MEDS ORDERED: NACL 0.9% 100 ML IV PRN (11:25)
[2018-11-30] MEDS ORDERED: ALBURX 25% (ALBUMIN) IV PRN (11:25)
--- NOTE | 2018-11-30 11:25 | Progress Note ---
Assessment and Plan Impression: * End stage renal disease * abdominal pain * s/p AVF revision * Accelerated hypertension * Anemia secondary to ESRD * Secondary hyperparathyroidism Plan: * Hemodialysis today; continue TTS schedule * needs perm cath removal, vascular consulted * UF as tolerated * abd pain workup per GI * Continue antiHTN medications * Dose medications for renal function * Renal diet * Epogen TIW prn Subjective Date of service: 11/30/18 Objective - Exam Narrative Exam: General appearance: well-developed, well-nourished EENT: ATNC Respiratory: Clear to Ascultation Heart: regular, S1S2 Gastrointestinal: Present: normal. Absent: tenderness, distended Integumentary: warm and dry Neurologic: no focal deficit Musculoskeletal: Present: other (no edema) Psychiatric: cooperative - Vital Signs Vital signs: Vital Signs - 12hr 11/30/18 11/30/18 11/30/18 02:42 07:29 09:09 Temperature 98.1 F 97.9 F Pulse Rate 59 L 60 Respiratory 18 18 Rate Blood Pressure 116/42 133/53 O2 Sat by Pulse 99 99 95 Oximetry - Lab 11/30/18 09:18 11/30/18 09:13 Most recent lab results Calcium 7.4 mg/dL (8.4-10.2) L 11/30/18 09:13 Medications & Allergies - Medications Allergies/Adverse Reactions: Allergies No Known Allergies Allergy (Verified 09/04/18 10:58) Home Medications: Home Medications Medication Instructions Recorded Confirmed Last Taken Type Apixaban [Eliquis] 2.5 09/07/18 09/06/18 History Atorvastatin Calcium 40 mg 09/07/18 09/05/18 History Febuxostat (Nf) [Uloric (Nf)] 40 09/07/18 Unknown History HYDROcodone/APAP 5-325 [[place] 1 each PO Q6HR PRN #20 tablet 09/07/18 Unknown Rx 5/325] Labetalol [Normodyne TAB] 100 mg PO 09/07/18 09/05/18 History Levothyroxine Sodium 125 mcg 09/07/18 09/05/18 History Olmesartan (Nf) [Benicar] 100 09/07/18 09/05/18 History Pantoprazole [Protonix TAB] 40 mg PO QDAY 09/07/18 09/07/18 Unknown History Sevelamer Carbonate [Renvela] 800 mg 09/07/18 09/05/18 History amLODIPine [Norvasc] 10 mg PO DAILY 09/07/18 09/07/18 09/05/18 History Active Medications: Generic Name Dose Route Start Last Admin Trade Name Freq PRN Reason Stop Dose Admin Acetaminophen 650 mg 11/28/18 15:40 11/28/18 22:19 Tylenol PO 650 mg Q4H PRN Administration Pain MILD(1-3)/Fever >100.5/[place] Acetaminophen/Hydrocodone Bitart 1 each 11/29/18 08:11 11/29/18 21:32 Malone 5/325 PO 1 each Q6H PRN Administration Pain Albuterol 2.5 mg 11/28/18 15:40 Proventil IH Q4HRT PRN Shortness Of Breath Amlodipine Besylate 10 mg 11/29/18 10:00 11/29/18 10:16 Norvasc PO 10 mg DAILY ELIEZER Administration Azithromycin 500 mg/ Sodium 250 mls @ 250 mls/hr 11/29/18 10:00 11/29/18 11:20 Chloride IV 250 mls/hr Q24HR ELIEZER Administration Protocol Ceftriaxone Sodium 1 gm in 50 mls @ 100 mls/hr 11/29/18 10:00 11/29/18 11:00 Rocephin/Ns 1 Gm/50 Ml IV 100 mls/hr Q24HR ELIEZER Administration Protocol Labetalol HCl 100 mg 11/29/18 10:00 11/29/18 21:32 Normodyne PO 100 mg BID ELIEZER Administration Levothyroxine Sodium 125 mcg 11/29/18 10:00 11/30/18 06:10 Synthroid PO 125 mcg DAILY@0600 ELIEZER Administration Nitroglycerin 0.4 mg 11/28/18 13:25 Nitrostat SL .Q5MIN PRN Chest Pain Ondansetron HCl 4 mg 11/28/18 15:40 11/28/18 22:20 Zofran IV 4 mg Q8H PRN Administration Nausea And Vomiting Pantoprazole Sodium 40 mg 11/29/18 10:00 11/29/18 10:16 Protonix PO 40 mg QDAY ELIEZER Administration Sevelamer Carbonate 800 mg 11/29/18 12:00 11/29/18 17:53 Renvela PO 800 mg TIDWM ELIEZER Administration Sodium Chloride 10 ml 11/28/18 22:00 11/29/18 21:36 Sodium Chloride Flush Syringe 10 Ml IV 10 ml BID ELIEZER Administration Sodium Chloride 10 ml 11/28/18 15:40 Sodium Chloride Flush Syringe 10 Ml IV PRN PRN LINE FLUSH
--- NOTE | 2018-11-30 11:30 | Gastroenterology Progress Note ---
Addendum entered and electronically signed by KWESI SHIPMAN MD 11/30/18 17:34: - management as outlined - will follow Original Note: Assessment and Plan 1.abdominal pain 2.abnormal CT -afebrile -WBC WNL -LFTs WNL -abd CT showed multiple nonspecific pancreatic cysts and dilated CBD -abd U/S showed gallbladder wall thickening and dilated CBD -clinically, patient reports abd pain is now resolved. No N/V. -MRI/MRCP pending for today -continue to trend labs and supportive care -further recommendations to follow based on above Subjective Date of service: 11/30/18 Principal diagnosis: biliary obstruction Interval history: No acute distress. Report abd pain now resolved. No N/V. Objective - Constitutional Vitals: Temp Pulse Resp BP Pulse Ox 97.9 F 60 18 133/53 95 11/30/18 07:29 11/30/18 07:29 11/30/18 07:29 11/30/18 07:29 11/30/18 09:09 General appearance: no acute distress - Respiratory Respiratory: bilateral: diminished - Cardiovascular Rhythm: regular Heart Sounds: Present: S1 & S2 - Gastrointestinal General gastrointestinal: Present: soft, non-distended, normal bowel sounds - Labs CBC & Chem 7: 11/30/18 09:18 11/30/18 09:13 Labs: Laboratory Results - last 24 hr 11/29/18 11/29/18 11/30/18 14:34 14:34 09:13 WBC RBC Hgb Hct MCV MCH MCHC RDW Plt Count Sodium 137 Potassium 5.3 H Chloride 96.3 L Carbon Dioxide 22 Anion Gap 24 BUN 87 H Creatinine 9.6 H Estimated GFR 4 BUN/Creatinine Ratio 9 Glucose 94 Calcium 7.4 L Total Bilirubin 0.30 AST 25 ALT 18 Alkaline Phosphatase 75 Total Creatine Kinase 72 CK-MB (CK-2) 2.3 CK-MB (CK-2) Rel Index 3.1 Troponin T 0.123 H* Total Protein 6.2 L Albumin 3.0 L Albumin/Globulin Ratio 0.9 Lipase 93 H 11/30/18 09:18 WBC 10.0 RBC 3.16 L Hgb 11.0 Hct 33.8 MCV 107 H MCH 35 H MCHC 33 RDW 14.8 Plt Count 209 Sodium Potassium Chloride Carbon Dioxide Anion Gap BUN Creatinine Estimated GFR BUN/Creatinine Ratio Glucose Calcium Total Bilirubin AST ALT Alkaline Phosphatase Total Creatine Kinase CK-MB (CK-2) CK-MB (CK-2) Rel Index Troponin T Total Protein Albumin Albumin/Globulin Ratio Lipase
[2018-11-30] MEDS: PROTONIX PO SCH (12:00)
[2018-11-30] MEDS: ZITHROMAX 500 MG in NACL 0.9% 250ML 250 ML IV SCH (12:00)
[2018-11-30] MEDS: SODIUM CHLORIDE FLUSH SYRINGE 10 ML IV SCH ×2 (12:00→22:01)
--- NOTE | 2018-11-30 12:12 | Progress Note ---
Addendum entered and electronically signed by BALDOMERO CROOK MD 11/30/18 14:00: The workup of the presenting abdominal pain and biliary disease in progress by jania dixon. With regards to her asymptomatic cardiac status, we will obtain outpatient records for review of prior cardiac workup, an attempt to ascertain the indication for her chronic oral anticoagulation. Original Note: Assessment and Plan Abdominal pain ESRD Hypertension Elevated troponin pt denies chest pain likely secondary to renal disease Obtain an echocardiogram for LVEF assessment. Subjective Date of service: 11/30/18 Principal diagnosis: biliary obstruction Interval history: No cardiac complaints. Objective Vital Signs Temp Pulse Resp BP Pulse Ox 11/30/18 09:09 95 11/30/18 07:29 97.9 F 60 18 133/53 99 11/30/18 02:42 98.1 F 59 L 18 116/42 99 11/29/18 22:32 18 11/29/18 22:00 66 97 11/29/18 21:32 66 18 117/58 11/29/18 20:29 97 11/29/18 19:37 97.9 F 66 18 117/51 97 11/29/18 13:35 98.0 F 66 18 120/55 98 - Physical Examination General: No Apparent Distress HEENT: Positive: PERRL Cardiac: Positive: Reg Rate and Rhythm - Labs and Meds Cardiac Enzymes 11/29/18 11/30/18 Range/Units 14:34 09:13 AST 25 (5-40) units/L CK-MB (CK-2) 2.3 (0.0-4.0) ng/mL CBC 11/30/18 Range/Units 09:18 WBC 10.0 (4.5-11.0) K/mm3 RBC 3.16 L (3.65-5.03) M/mm3 Hgb 11.0 (10.1-14.3) gm/dl Hct 33.8 (30.3-42.9) % Plt Count 209 (140-440) K/mm3 Comprehensive Metabolic Panel 11/30/18 Range/Units 09:13 Sodium 137 (137-145) mmol/L Potassium 5.3 H (3.6-5.0) mmol/L Chloride 96.3 L (98-107) mmol/L Carbon Dioxide 22 (22-30) mmol/L BUN 87 H (7-17) mg/dL Creatinine 9.6 H (0.7-1.2) mg/dL Glucose 94 (65-100) mg/dL Calcium 7.4 L (8.4-10.2) mg/dL AST 25 (5-40) units/L ALT 18 (7-56) units/L Alkaline Phosphatase 75 (35-129) units/L Total Protein 6.2 L (6.3-8.2) g/dL Albumin 3.0 L (3.9-5) g/dL
--- NOTE | 2018-11-30 12:48 | Consultation ---
History of Present Illness - Reason for Consult Consult date: 11/30/18 perm cath removal, end-stage renal disease - History of Present Illness Patient with a history of end-stage renal disease who per patient had a right IJ tunneled hemodialysis catheter placed approximately 1 year ago in November 2017. The patient underwent creation of a left arm AV graft in September 2018 is currently being used for dialysis access. Past History Past Medical History: diabetes, ESRD, heart failure, hypertension, hyperlipidemia, hypothyroidism Past Surgical History: Other (AV Fistula Placement) Social history: single. denies: smoking, alcohol abuse, prescription drug abuse Family history: diabetes, hypertension Medications and Allergies Allergies Allergy/AdvReac Type Severity Reaction Status Date / Time No Known Allergies Allergy Verified 09/04/18 10:58 Home Medications Medication Instructions Recorded Confirmed Last Taken Type Apixaban [Eliquis] 2.5 09/07/18 09/06/18 History Atorvastatin Calcium 40 mg 09/07/18 09/05/18 History Febuxostat (Nf) [Uloric (Nf)] 40 09/07/18 Unknown History HYDROcodone/APAP 5-325 [[place] 1 each PO Q6HR PRN #20 tablet 09/07/18 Unknown Rx 5/325] Labetalol [Normodyne TAB] 100 mg PO 09/07/18 09/05/18 History Levothyroxine Sodium 125 mcg 09/07/18 09/05/18 History Olmesartan (Nf) [Benicar] 100 09/07/18 09/05/18 History Pantoprazole [Protonix TAB] 40 mg PO QDAY 09/07/18 09/07/18 Unknown History Sevelamer Carbonate [Renvela] 800 mg 09/07/18 09/05/18 History amLODIPine [Norvasc] 10 mg PO DAILY 09/07/18 09/07/18 09/05/18 History Active Meds: Active Medications Acetaminophen (Tylenol) 650 mg PO Q4H PRN PRN Reason: Pain MILD(1-3)/Fever >100.5/[place] Last Admin: 11/28/18 22:19 Dose: 650 mg Documented by: Acetaminophen/Hydrocodone Bitart ([place] 5/325) 1 each PO Q6H PRN PRN Reason: Pain Last Admin: 11/29/18 21:32 Dose: 1 each Documented by: Albumin Human ([place] 25% (Albumin)) 25 gm IV MALCOM PRN PRN Reason: Hypotension Albuterol (Proventil) 2.5 mg IH Q4HRT PRN PRN Reason: Shortness Of Breath Amlodipine Besylate (Norvasc) 10 mg PO DAILY [facility] Last Admin: 11/29/18 10:16 Dose: 10 mg Documented by: Azithromycin 500 mg/ Sodium (Chloride) 250 mls @ 250 mls/hr IV Q24HR [facility]; Protocol Last Admin: 11/29/18 11:20 Dose: 250 mls/hr Documented by: Ceftriaxone Sodium (Rocephin/Ns 1 Gm/50 Ml) 1 gm in 50 mls @ 100 mls/hr IV Q24HR [facility]; Protocol Last Admin: 11/29/18 11:00 Dose: 100 mls/hr Documented by: Sodium Chloride (Nacl 0.9%) 100 mls @ 999 mls/hr IV MALCOM PRN PRN Reason: Hypotension Labetalol HCl (Normodyne) 100 mg PO BID [facility] Last Admin: 11/29/18 21:32 Dose: 100 mg Documented by: Levothyroxine Sodium (Synthroid) 125 mcg PO DAILY@0600 [facility] Last Admin: 11/30/18 06:10 Dose: 125 mcg Documented by: Nitroglycerin (Nitrostat) 0.4 mg SL .Q5MIN PRN PRN Reason: Chest Pain Ondansetron HCl (Zofran) 4 mg IV Q8H PRN PRN Reason: Nausea And Vomiting Last Admin: 11/28/18 22:20 Dose: 4 mg Documented by: Pantoprazole Sodium (Protonix) 40 mg PO QDAY [facility] Last Admin: 11/29/18 10:16 Dose: 40 mg Documented by: Sevelamer Carbonate (Renvela) 800 mg PO TIDWM [facility] Last Admin: 11/29/18 17:53 Dose: 800 mg Documented by: Sodium Chloride (Sodium Chloride Flush Syringe 10 Ml) 10 ml IV BID [facility] Last Admin: 11/29/18 21:36 Dose: 10 ml Documented by: Sodium Chloride (Sodium Chloride Flush Syringe 10 Ml) 10 ml IV PRN PRN PRN Reason: LINE FLUSH Review of Systems All systems: negative Exam - Constitutional Vitals: Temp Pulse Resp BP Pulse Ox 97.9 F 60 18 133/53 95 11/30/18 07:29 11/30/18 07:29 11/30/18 07:29 11/30/18 07:29 11/30/18 09:09 General appearance: Present: no acute distress - EENT Eyes: Present: PERRL ENT: hearing intact - Neck Neck: Present: supple, normal ROM - Respiratory Respiratory effort: normal - Extremities Extremities: abnormal (upper arm AV graft) - Abdominal General gastrointestinal: Present: deferred Female genitourinary: Present: deferred - Rectal Rectal Exam: deferred - Psychiatric Psychiatric: appropriate mood/affect, cooperative Results - Labs CBC & Chem 7: 11/30/18 09:18 11/30/18 09:13 Labs: Abnormal lab results 11/29/18 11/29/18 11/30/18 Range/Units 14:34 14:34 09:13 RBC (3.65-5.03) M/mm3 MCV (79-97) fl MCH (28-32) pg Potassium 5.3 H (3.6-5.0) mmol/L Chloride 96.3 L (98-107) mmol/L BUN 87 H (7-17) mg/dL Creatinine 9.6 H (0.7-1.2) mg/dL Calcium 7.4 L (8.4-10.2) mg/dL Troponin T 0.123 H* (0.00-0.029) ng/mL Total Protein 6.2 L (6.3-8.2) g/dL Albumin 3.0 L (3.9-5) g/dL Lipase 93 H (13-60) units/L 11/30/18 Range/Units 09:18 RBC 3.16 L (3.65-5.03) M/mm3 MCV 107 H (79-97) fl MCH 35 H (28-32) pg Potassium (3.6-5.0) mmol/L Chloride (98-107) mmol/L BUN (7-17) mg/dL Creatinine (0.7-1.2) mg/dL Calcium (8.4-10.2) mg/dL Troponin T (0.00-0.029) ng/mL Total Protein (6.3-8.2) g/dL Albumin (3.9-5) g/dL Lipase (13-60) units/L Assessment and Plan Patient will be scheduled for perm cath removal at bedside later today.
[2018-11-30] MEDS: NORMODYNE PO SCH ×2 (13:15→22:01)
[2018-11-30] MEDS: ROCEPHIN/NS 1 GM/50 ML 1 GM/50 ML BAG IV SCH (13:44)
--- NOTE | 2018-11-30 15:20 | Operative Report ---
Operative Report Operative Report: Exam: Removal of tunneled hemodialysis catheter Clinical indication: Patient with end-stage renal disease receiving dialysis to left upper arm AV graft Date: 11/30/2018 Procedure: Following an excellent action over the risks, benefits and alternative; informed consent was obtained. The procedure was performed at bedside in the patient's room. The patient's indwelling right chest wall tunneled hemodialysis catheter and catheter exit site were prepped and draped in the usual sterile fashion. 1% lidocaine was used for anesthesia. The catheter Was dissected free. The catheter was then removed intact. Hemostasis was achieved using manual compression and a sterile compression dressing was applied. The patient tolerated the procedure well. There were no immediate post procedure complications. Impression: Removal of tunneled hemodialysis catheter
[2018-11-30] MEDS: NORVASC PO SCH (15:22)
[2018-11-30] MEDS ORDERED: NACL 0.9% 1000 ML 2,000 ML ONE (19:33)
--- NOTE | 2018-11-30 21:38 | Magnetic Resonance Report ---
FINAL REPORT EXAM: MR ABDOMEN MRCP HISTORY: biliary obstruction, pancreatic lesioninpatient TECHNIQUE: Multiplanar multisequence noncontrast MR images of the abdomen were performed. MRCP image s were also performed. Comparison: Abdominal ultrasound 11/29/2018 demonstrating limited assessment by ultrasound but suspec owen extrahepatic biliary ductal prominence, distended gallbladder without stones. No gallbladder wall thickening, atrophic right kidney, CT abdomen and pelvis 11/28/2018 demonstrating atrophic kidneys, lobular lesion of the pancreatic head and 1.6 x 1.3 centimeter cystic pancreatic body lesion FINDINGS: Heart is enlarged. There is marked motion degradation. Posterior basal right lower lobe consolidation . 1.4 x 1.1 centimeter dorsal pancreatic head lesion. Extrahepatic common duct is prominent up to 9 mil limeters. Pancreatic tail lesion seen on the previous CT which appear to measure about 1.4 centimeters is not s een on the T2 weighted images. Retrocrural 1 centimeter density may represent a prominent cisterna chyli. Right lobe liver subcapsular 1 centimeter cyst. Moderately distended gallbladder without discrete stones. Atrophic kidneys. Adrenal glands are obscured by motion degradation. A left adrenal adenoma was previously identified. MRCP images demonstrate multiple cystic lesions in the pancreatic head and uncinate, the dorsal lesio n measuring 1.1 centimeters. There are at least 9 lesions in the head and dorsal neck/uncinate and 3 lesions in the pancreatic tail. No intra or extra pancreatic ductal dilatation is identified. IMPRESSION: Markedly motion limited exam suggests multiple appearing pancreatic cystic lesions of the head and un cinate and a couple of the tail without biliary ductal dilatation or pancreatic ductal dilatation mos t suggestive of multifocal side branch IPMNs. A couple of these lesions are clearly in communication with the main duct. No definite mural nodule identified but limited assessment due to motion. As to whether it will exchange operator based on patient's comorbidities, consider multi phase CT for pancreatic mass protocol versus consider endoscopic ultrasound with biopsy.
[2018-11-30] MEDS: NORCO 5/325 PO PRN (22:00)
[2018-12-01 05:48] LABS: Calcium 7.6 mg/dL (8.4-10.2)
[2018-12-01] MEDS: SYNTHROID PO SCH (05:59)
--- NOTE | 2018-12-01 07:55 | Progress Note ---
Assessment and Plan Assessment and plan: 78 YO Female with ESRD on HD (T,R,Sa), Hypothyroidism, SLE, Asthma, HTN, HLD, Anxiety, Anemia, CHF, DM presents to ED for evaluation. Pt states that she has been "feeling sick" over the past 4 days. Pt states that she went to her scheduled dialysis appointment and subsequently began to experience abdominal pain. Per nursing triage documentation "Patient c/o upper abdominal pain after being on hemodialysis for 1.5 hr. Abdomen soft,denies nausea. Expiratory wheexing noted" Pt states that her pain was 5/10, intermittent, localized to the epigastric region. EMS notified, and patient transported to [facility] for further care and evaluation. Pt seen and evaluated in ED and found to have RLL Pneumonia, ESRD, Acidosis, and Biliary obstruction. Pt admitted to [facility] unit. Pt denies fever, chills, CP, Palpitations, NVD, Headache, Trauma, productive cough, or recent ill contacts. Nephrology consulted for dialysis. GI consulted for biliary obstruction. While chest xray is normal patient had a CT abdomen and pelvis with multiple mirage of problems identified. Patient's respiratory status shows remarkable improvement but imaging studies were concerning for multiple pathology as listed below Patient is still pending an MRCP Mildly trend and troponin with no chest pain likely supportive off non-ST e levation type II cardiology is following and we are waiting further workup from the GI and cardiology Tunnelled Dialysis catheter was removed today Peritoneal irritation ?etiology. Multiple non specific pancreatic Cyst-?PANCREATITIS Dilated CBD Colonic Diverticulosis Possible Acute Cholecystitis Calcifying uterine fibroids L1 compression fracture- Chronic Hepatic Cyst-Right side Right lobar atalectasis with ground glass opacity- Doubt pneumonia- No fever, no white count Chronic shortness of breath ESRD on HD- TTS Stable Congestive heart failure-Diastolic Type 2 NSTEMI GERD HTN Hypothyrodisim Plan Supportive care Nephrology, GI and Cardiac consult noted Ultrasound abdomen- complete, evaluate Gallbladder and pancreas. MRCP was done and showed multple cystic lesions, recommend to consider multiphasic CT versus endoscopic ultrasound Incentive spirometer Lipase is trending down patient would known for abdominal pain Discontinue abx and monitor off anbx Pain control PRN Nebs Obtain complete med rec. Called family DVT/GI prophy Discharge based on final GI recommendations. History Interval history: Patient was seen and evaluated this morning Hospitalist Physical - Physical exam Narrative exam: Not in cardiopulmonary distress. The patient appeared well nourished and normally developed. Vital signs as documented. Head exam is unremarkable. No scleral icterus . Neck is without jugular venous distension, thyromegaly, or carotid bruits. Lungs are clear to auscultation. Cardiac exam reveals regular rate and Rhythm. First and second heart sounds normal. No murmurs, rubs or gallops. Abdominal exam reveals normal bowel sounds, no masses, no organomegaly and no aortic enlargement. Extremities are nonedematous and both femoral and pedal pulses are normal. [employer]GER: Alert and oriented 3. No focal weakness. - Constitutional Vitals: Temp Pulse Resp BP Pulse Ox 98.5 F 65 20 137/60 93 12/01/18 07:10 12/01/18 07:10 12/01/18 07:10 12/01/18 07:10 12/01/18 07:10 General appearance: Present: mild distress Results - Labs CBC & Chem 7: 11/30/18 09:18 12/01/18 04:42 Labs: Laboratory Last Values WBC 10.0 K/mm3 (4.5-11.0) 11/30/18 09:18 RBC 3.16 M/mm3 (3.65-5.03) L 11/30/18 09:18 Hgb 11.0 gm/dl (10.1-14.3) 11/30/18 09:18 Hct 33.8 % (30.3-42.9) 11/30/18 09:18 MCV 107 fl (79-97) H 11/30/18 09:18 MCH 35 pg (28-32) H 11/30/18 09:18 MCHC 33 % (30-34) 11/30/18 09:18 RDW 14.8 % (13.2-15.2) 11/30/18 09:18 Plt Count 209 K/mm3 (140-440) 11/30/18 09:18 Lymph % (Auto) 25.8 % (13.4-35.0) 11/29/18 04:05 [place] % (Auto) 10.3 % (0.0-7.3) H 11/29/18 04:05 Eos % (Auto) 2.5 % (0.0-4.3) 11/29/18 04:05 Baso % (Auto) Receiver/Laborer 11/29/18 04:05 Lymph # 2.8 K/mm3 (1.2-5.4) 11/29/18 04:05 [place] # 1.1 K/mm3 (0.0-0.8) H 11/29/18 04:05 Eos # 0.3 K/mm3 (0.0-0.4) 11/29/18 04:05 Baso # 0.1 K/mm3 (0.0-0.1) 11/29/18 04:05 Seg Neutrophils % 60.3 % (40.0-70.0) 11/29/18 04:05 Seg Neutrophils # 6.6 K/mm3 (1.8-7.7) 11/29/18 04:05 Sodium 139 mmol/L (137-145) 12/01/18 04:42 Potassium 4.9 mmol/L (3.6-5.0) 12/01/18 04:42 Chloride 96.4 mmol/L (98-107) L 12/01/18 04:42 Carbon Dioxide 25 mmol/L (22-30) 12/01/18 04:42 Anion Gap 23 mmol/L 12/01/18 04:42 BUN 56 mg/dL (7-17) H 12/01/18 04:42 Creatinine 7.6 mg/dL (0.7-1.2) H 12/01/18 04:42 Estimated GFR 5 ml/min 12/01/18 04:42 BUN/Creatinine Ratio 7 % 12/01/18 04:42 Glucose 110 mg/dL (65-100) H 12/01/18 04:42 Lactic Acid 1.60 mmol/L (0.7-2.0) 11/28/18 15:26 Calcium 7.6 mg/dL (8.4-10.2) L 12/01/18 04:42 Total Bilirubin 0.30 mg/dL (0.1-1.2) 11/30/18 09:13 AST 25 units/L (5-40) 11/30/18 09:13 ALT 18 units/L (7-56) 11/30/18 09:13 Alkaline Phosphatase 75 units/L (35-129) 11/30/18 09:13 Total Creatine Kinase 72 units/L (30-135) 11/29/18 14:34 CK-MB (CK-2) 2.3 ng/mL (0.0-4.0) 11/29/18 14:34 CK-MB (CK-2) Rel Index 3.1 (0-4) 11/29/18 14:34 Troponin T 0.123 ng/mL (0.00-0.029) H* 11/29/18 14:34 Total Protein 6.2 g/dL (6.3-8.2) L 11/30/18 09:13 Albumin 3.0 g/dL (3.9-5) L 11/30/18 09:13 Albumin/Globulin Ratio 0.9 % 11/30/18 09:13 Triglycerides 319 mg/dL (2-149) H 11/28/18 14:34 Cholesterol 152 mg/dL (50-199) 11/28/18 14:34 LDL Cholesterol Direct 87 mg/dL (50-130) 11/28/18 14:34 HDL Cholesterol 55 mg/dL (40-59) 11/28/18 14:34 Cholesterol/HDL Ratio 2.76 % 11/28/18 14:34 Lipase 93 units/L (13-60) H 11/29/18 14:34 Urine Color Yellow (Yellow) 11/28/18 15:45 Urine Turbidity Clear (Clear) 11/28/18 15:45 Urine pH 7.0 (5.0-7.0) 11/28/18 15:45 Ur Specific [place] 1.011 (1.003-1.030) 11/28/18 15:45 Urine Protein 30 mg/dl mg/dL (Negative) 11/28/18 15:45 Urine Glucose (UA) Neg mg/dL (Negative) 11/28/18 15:45 Urine Ketones Neg mg/dL (Negative) 11/28/18 15:45 Urine Blood Neg (Negative) 11/28/18 15:45 Urine Nitrite Neg (Negative) 11/28/18 15:45 Urine Bilirubin Neg (Negative) 11/28/18 15:45 Urine Urobilinogen < 2.0 mg/dL (<2.0) 11/28/18 15:45 Ur Leukocyte Esterase Neg (Negative) 11/28/18 15:45 Urine WBC (Auto) 1.0 /HPF (0.0-6.0) 11/28/18 15:45 Urine RBC (Auto) 1.0 /HPF (0.0-6.0) 11/28/18 15:45 U Epithel Cells (Auto) 3.0 /HPF (0-13.0) 11/28/18 15:45
[2018-12-01] MEDS: RENVELA PO SCH ×3 (08:55→17:44)
[2018-12-01] MEDS: PROTONIX PO SCH ×2 (08:56→10:00)
[2018-12-01] MEDS: NORMODYNE PO SCH ×2 (08:56→10:00)
[2018-12-01] MEDS: NORVASC PO SCH ×2 (08:56→10:00)
[2018-12-01] MEDS: SODIUM CHLORIDE FLUSH SYRINGE 10 ML IV SCH ×2 (08:57→10:00)
--- NOTE | 2018-12-01 09:33 | Discharge Summary ---
Providers - Providers Date of Admission: 11/28/18 15:40 Date of discharge: 12/01/18 Attending physician: CHRISTOS CANO MD 11/28/18 13:24 Consult to Physician [CONS] Stat Comment: a/s notified 1510 Consulting Provider: HARSHA BYRNE Physician Instructions: Reason For Exam: esrd 11/28/18 17:08 Consult to Physician [CONS] Routine Comment: TIFFANIE Consulting Provider: NIR KRAMER Physician Instructions: CONSULT WAS CALLED TO . Reason For Exam: biliary obstruction 11/29/18 07:57 Consult to Physician [CONS] Routine Comment: TIFFANIE Consulting Provider: SALOMÓN LOU Physician Instructions: CONSULT WAS CALLED TO /AMIRA Reason For Exam: NSTEMI TYPE 2 11/30/18 11:27 Consult to Physician [CONS] Routine Comment: Consulting Provider: TOR ARTIS Physician Instructions: Reason For Exam: perm cath removal Primary care physician: ED YI Hospitalization Reason for admission: abdomen abdomen pain Condition: Fair Procedures: CT scan of the abdomen showing multiple Cysts of the pancreas and adenoma of the kidney left MRI cholangiogram showing dilated bile ducts and pancreatic cyst Hospital course: Patient seen and examined chart reviewed, initially admitted to the hospitalist services on account of abdominal pain now transferred to my service. Patient was admitted following abdomen pain during hemodialysis was evaluated in the hospital including CT scan of the abdomen which showed mostly pancreatic cysts with no definite mass in the abdomen patient also had cholangiogram MRI which was inconclusive but no definite mass in the abdomen. Further evaluation showed pneumonia of the left lower lobe and patient was started on IV antibiotics with progressive clinical improvement. Present abdomen pain much better abdomen pain has resolved and no fever reported denied any shortness of breath at this time requested to be discharged home at this point. Patient to continue at home on oral antibiotics and to follow up with home health and follow up with her primary physician Disposition: DC-30 STILL A PATIENT Core Measure Documentation - Palliative Care Palliative Care/ Comfort Measures: Not Applicable - Core Measures Any of the following diagnoses?: none Exam - Physical Exam Narrative exam: GENERAL: Elderly female resting comfortably in bed not in acute distress HEENT: Patient is not pale, not jaundiced, not cyanosed. NECK: No JVD, no thyroid enlargement and no lymphadenopathy. CHEST/LUNGS: Good air exchange bilaterally, no wheeze, no rales and no rhonchi. No chest wall tenderness, percussion is normal, symmetrical chest wall. HEART/CARDIOVASCULAR: Regular rate and rhythm, S1 and S2 only, no murmur. ABDOMEN: Abdomen is soft, nondistended, no guarding, no rebound tenderness, no masses palpable per abdomen, active bowel sounds. SKIN: Warm and dry, no rash. NEURO: Awake, alert, oriented x3, speech normal. Power 5/5 in all the extremities. EXTREMITIES: No pedal edema, good peripheral pulses, no finger or toe clubbing. - Constitutional Vitals: Temp Pulse Resp BP Pulse Ox 98.5 F 65 20 137/60 93 12/01/18 07:10 12/01/18 08:56 12/01/18 07:10 12/01/18 08:56 12/01/18 07:10 Plan Activity: no restrictions Weight Bearing Status: Full Weight Bearing Special Instructions: home health RN Durable Medical Equipment Needed Upon Discharge: Oxygen Follow up with: ED YI MD [Primary Care Provider] - 3-5 Days
--- NOTE | 2018-12-01 09:50 | Gastroenterology Progress Note ---
Addendum entered and electronically signed by KWESI SHIPMAN MD 12/01/18 14:08: - pt stable w/o GI complaints - management as outlined below - call if needed Original Note: Assessment and Plan 1.abdominal pain 2.abnormal CT -afebrile -WBC WNL -LFTs WNL -abd CT showed multiple nonspecific pancreatic cysts and dilated CBD -abd U/S showed gallbladder wall thickening and dilated CBD -MRI/MRCP revealed multiple pancreatic cysts and lesions (extrahepatic common duct prominent; no intra or extra pancreatic ductal dilatation) -clinically, patient is stable with abd pain resolved. No N/V. Tolerating diet. -will order CA 19-9 -recommend EUS for further evaluation as outpatient -continue supportive care -patient okay to be d/c per GI standpoint with f/u in clinic ~2 weeks to schedule EUS as above -will sign off, please call if needed Subjective Date of service: 12/01/18 Principal diagnosis: biliary obstruction Interval history: Patient sitting up in bed this am eating breakfast. Denies abd pain or N/v. Objective - Constitutional Vitals: Temp Pulse Resp BP Pulse Ox 98.5 F 65 20 137/60 93 12/01/18 07:10 12/01/18 08:56 12/01/18 07:10 12/01/18 08:56 12/01/18 07:10 General appearance: no acute distress - Respiratory Respiratory: bilateral: CTA (anterior) - Cardiovascular Rhythm: regular - Gastrointestinal General gastrointestinal: Present: soft, non-tender, non-distended, normal bowel sounds - Labs CBC & Chem 7: 11/30/18 09:18 12/01/18 04:42 Labs: Laboratory Results - last 24 hr 11/30/18 12/01/18 09:13 04:42 Sodium 137 139 Potassium 5.3 H 4.9 Chloride 96.3 L 96.4 L Carbon Dioxide 22 25 Anion Gap 24 23 BUN 87 H 56 H Creatinine 9.6 H 7.6 H Estimated GFR 4 5 BUN/Creatinine Ratio 9 7 Glucose 94 110 H Calcium 7.4 L 7.6 L Total Bilirubin 0.30 AST 25 ALT 18 Alkaline Phosphatase 75 Total Protein 6.2 L Albumin 3.0 L Albumin/Globulin Ratio 0.9
--- NOTE | 2018-12-01 12:01 | Progress Note ---
Assessment and Plan - Patient Problems (1) Elevated troponin Current Visit: Yes Status: Acute Plan to address problem: The isolated rising troponin levels is nonspecific in the absence of cardiac symptoms. Elevation is likely due to underlying kidney disease. Cardiac status stable and asymptomatic. Please refer to GI evaluation of the presenting abdominal pain and biliary disease. (2) On continuous oral anticoagulation Current Visit: Yes Status: Acute Plan to address problem: We'll request outpatient records to determine indication for patient's use of chronic oral anticoagulation. Subjective Date of service: 12/01/18 Principal diagnosis: biliary obstruction Interval history: Patient looks and feels comfortable, no new cardiac complaints. Objective Vital Signs Temp Pulse Resp BP Pulse Ox 12/01/18 10:00 65 12/01/18 08:56 65 137/60 12/01/18 07:10 98.5 F 65 20 137/60 93 12/01/18 02:00 58 L 97 12/01/18 01:27 98.3 F 18 137/55 11/30/18 23:00 18 11/30/18 22:01 89 148/76 11/30/18 22:00 89 20 96 11/30/18 20:00 62 96 11/30/18 19:47 98.6 F 18 148/64 11/30/18 19:15 98.6 F 59 L 16 134/62 11/30/18 19:00 62 120/56 11/30/18 18:45 62 116/60 11/30/18 18:30 61 134/60 11/30/18 18:15 62 145/62 11/30/18 18:00 61 121/57 11/30/18 17:45 61 117/59 11/30/18 17:30 62 121/61 11/30/18 17:15 61 126/59 11/30/18 17:00 63 108/47 11/30/18 16:45 64 134/63 11/30/18 16:30 64 124/61 11/30/18 16:15 63 136/60 11/30/18 16:00 62 143/67 11/30/18 15:50 98.3 F 62 16 144/65 11/30/18 15:22 61 147/60 11/30/18 13:15 61 147/60 11/30/18 13:11 97.8 F 61 18 147/60 95 - Physical Examination General: No Apparent Distress HEENT: Positive: PERRL Neck: Positive: neck supple Cardiac: Positive: Reg Rate and Rhythm Lungs: Positive: Decreased Breath Sounds Neuro: Positive: Grossly Intact Abdomen: Positive: Soft Skin: Positive: Clear Extremities: Absent: edema - Labs and Meds Comprehensive Metabolic Panel 12/01/18 Range/Units 04:42 Sodium 139 (137-145) mmol/L Potassium 4.9 (3.6-5.0) mmol/L Chloride 96.4 L (98-107) mmol/L Carbon Dioxide 25 (22-30) mmol/L BUN 56 H (7-17) mg/dL Creatinine 7.6 H (0.7-1.2) mg/dL Glucose 110 H (65-100) mg/dL Calcium 7.6 L (8.4-10.2) mg/dL
--- NOTE | 2018-12-01 15:36 | Progress Note ---
Assessment and Plan Impression: * End stage renal disease * abdominal pain * s/p AVF revision * Accelerated hypertension * Anemia secondary to ESRD * Secondary hyperparathyroidism Plan: * Hemodialysis MWF * s/p perm cath removal * UF as tolerated * abd pain workup per GI * Continue antiHTN medications * Dose medications for renal function * Renal diet * Epogen TIW prn * ok to dc home Subjective Date of service: 12/01/18 Principal diagnosis: biliary obstruction Interval history: resting well in bed today Objective - Exam Narrative Exam: General appearance: well-developed, well-nourished EENT: ATNC Respiratory: Clear to Ascultation Heart: regular, S1S2 Gastrointestinal: Present: normal. Absent: tenderness, distended Integumentary: warm and dry Neurologic: no focal deficit Musculoskeletal: Present: other (no edema) Psychiatric: cooperative - Vital Signs Vital signs: Vital Signs - 12hr 12/01/18 12/01/18 12/01/18 07:10 08:56 10:00 Temperature 98.5 F Pulse Rate 65 65 65 Respiratory 20 Rate Blood Pressure 137/60 137/60 O2 Sat by Pulse 93 Oximetry 12/01/18 13:29 Temperature 98.7 F Pulse Rate 65 Respiratory 20 Rate Blood Pressure 122/63 O2 Sat by Pulse 97 Oximetry - Lab 11/30/18 09:18 12/01/18 04:42 Most recent lab results Calcium 7.6 mg/dL (8.4-10.2) L 12/01/18 04:42 Medications & Allergies - Medications Allergies/Adverse Reactions: Allergies No Known Allergies Allergy (Verified 09/04/18 10:58) Home Medications: Home Medications Medication Instructions Recorded Confirmed Last Taken Type Apixaban [Eliquis] 2.5 mg PO DAILY 09/07/18 12/01/18 09/06/18 History Atorvastatin Calcium 40 mg PO DAILY 09/07/18 12/01/18 09/05/18 History Febuxostat (Nf) [Uloric (Nf)] 40 mg PO DAILY 09/07/18 12/01/18 Unknown History Labetalol [Normodyne TAB] 100 mg PO DAILY 09/07/18 12/01/18 09/05/18 History Levothyroxine Sodium 125 mcg PO DAILY 09/07/18 12/01/18 09/05/18 History Olmesartan (Nf) [Benicar] 100 mg PO DAILY 09/07/18 12/01/18 09/05/18 History Pantoprazole [Protonix TAB] 40 mg PO QDAY 09/07/18 12/01/18 Unknown History Sevelamer Carbonate [Renvela] 800 mg PO TID 09/07/18 12/01/18 09/05/18 History amLODIPine [Norvasc] 10 mg PO DAILY 09/07/18 12/01/18 09/05/18 History ALBUTEROL NEB's [Proventil 0.083% 2.5 mg IH Q4HRT PRN nebu 12/01/18 Unknown Rx NEBS] Acetaminophen [Acetaminophen TAB] 650 mg PO Q4H PRN tablet 12/01/18 Unknown Rx Labetalol [Normodyne TAB] 100 mg PO BID tablet 12/01/18 Unknown Rx Levothyroxine [Synthroid] 125 mcg PO DAILY@0600 tablet 12/01/18 Unknown Rx Pantoprazole [Protonix TAB] 40 mg PO QDAY tablet 12/01/18 Unknown Rx Sevelamer Carbonate [Renvela] 800 mg PO TIDWM tablet 12/01/18 Unknown Rx amLODIPine [Norvasc] 10 mg PO DAILY tablet 12/01/18 Unknown Rx levoFLOXacin [Levaquin] 250 mg PO QDAY #7 tablet 12/01/18 Unknown Rx Active Medications: Generic Name Dose Route Start Last Admin Trade Name Freq PRN Reason Stop Dose Admin Acetaminophen 650 mg 11/28/18 15:40 11/28/18 22:19 Tylenol PO 650 mg Q4H PRN Administration Pain MILD(1-3)/Fever >100.5/CARPENTER Acetaminophen/Hydrocodone Bitart 1 each 11/29/18 08:11 11/30/18 22:00 [place] 5/325 PO 1 each Q6H PRN Administration Pain Albumin Human 25 gm 11/30/18 11:25 Alburx 25% (Albumin) IV MALCOM PRN Hypotension Albuterol 2.5 mg 11/28/18 15:40 Proventil IH Q4HRT PRN Shortness Of Breath Amlodipine Besylate 10 mg 11/29/18 10:00 12/01/18 10:00 Norvasc PO Not Given DAILY ELIEZER Sodium Chloride 100 mls @ 999 mls/hr 11/30/18 11:25 Nacl 0.9% IV MALCOM PRN Hypotension Labetalol HCl 100 mg 11/29/18 10:00 12/01/18 10:00 Normodyne PO Not Given BID ELIEZER Levothyroxine Sodium 125 mcg 11/29/18 10:00 12/01/18 05:59 Synthroid PO 125 mcg DAILY@0600 ELIEZER Administration Nitroglycerin 0.4 mg 11/28/18 13:25 Nitrostat SL .Q5MIN PRN Chest Pain Ondansetron HCl 4 mg 11/28/18 15:40 11/28/18 22:20 Zofran IV 4 mg Q8H PRN Administration Nausea And Vomiting Pantoprazole Sodium 40 mg 11/29/18 10:00 12/01/18 10:00 Protonix PO Not Given QDAY ELIEZER Sevelamer Carbonate 800 mg 11/29/18 12:00 12/01/18 12:28 Renvela PO 800 mg TIDWM ELIEZER Administration Sodium Chloride 10 ml 11/28/18 22:00 12/01/18 10:00 Sodium Chloride Flush Syringe 10 Ml IV Not Given BID ELIEZER Sodium Chloride 10 ml 11/28/18 15:40 Sodium Chloride Flush Syringe 10 Ml IV PRN PRN LINE FLUSH
[2018-12-01 19:25] VITALS: BP 134/61
== END 2018-12-01 20:20 | disposition home health service (06) | DRG 280 ==
LOC: ED 12:50 → 2B-ACE 15:40
PROVIDERS: ADMIT Internal Medicine; ATTEND Internal Medicine
PROC: 5A1D70Z Performance of Urinary Filtration, Intermittent, Less than 6 Hours Per Day (ICD-10-PCS; principal; 2018-11-30)
PROC: 0JPV3XZ Removal of Tunneled Vascular Access Device from Upper Extremity Subcutaneous Tissue and Fascia, Percutaneous Approach (ICD-10-PCS; 2018-11-30)
DX: I21.A1 Myocardial infarction type 2 (principal); N18.6 End stage renal disease; K65.9 Peritonitis, unspecified; I50.31 Acute diastolic (congestive) heart failure; J18.1 Lobar pneumonia, unspecified organism; K83.1 Obstruction of bile duct; K81.0 Acute cholecystitis; I13.2 Hypertensive heart and chronic kidney disease with heart failure and with stage 5 chronic kidney disease, or end stage renal disease; E87.2 Acidosis; J98.11 Atelectasis; M48.56XA Collapsed vertebra, not elsewhere classified, lumbar region, initial encounter for fracture; N25.81 Secondary hyperparathyroidism of renal origin; K86.2 Cyst of pancreas; D30.02 Benign neoplasm of left kidney; E03.9 Hypothyroidism, unspecified; K21.9 Gastro-esophageal reflux disease without esophagitis; I48.91 Unspecified atrial fibrillation; E11.22 Type 2 diabetes mellitus with diabetic chronic kidney disease; J45.909 Unspecified asthma, uncomplicated; D57.3 Sickle-cell trait; M32.9 Systemic lupus erythematosus, unspecified; K76.89 Other specified diseases of liver; E78.5 Hyperlipidemia, unspecified; D63.1 Anemia in chronic kidney disease; K57.30 Diverticulosis of large intestine without perforation or abscess without bleeding; D25.9 Leiomyoma of uterus, unspecified; F41.9 Anxiety disorder, unspecified; Z83.3 Family history of diabetes mellitus; Z82.49 Family history of ischemic heart disease and other diseases of the circulatory system; Z99.2 Dependence on renal dialysis; Z79.899 Other long term (current) drug therapy
CPT/HCPCS: 36415; 71045; 74176; 74181; 76705; 80048; 80053; 80061; 81001; 82140; 82550; 82553; 83690; 84484; 85025; 85027; 87040; 93005; 93010; G0378; J0456; J0696; J1956; J2405; J7030; J7050

== ENCOUNTER 2020-08-10 13:49 | Emergency (ER) | payer MEDICARE ==
[2020-08-10 14:15] VITALS: BP 176/91
--- NOTE | 2020-08-10 14:43 | XRay Report ---
XR chest 1V ap INDICATION / CLINICAL INFORMATION: Chest Pain COMPARISON: November 28, 2018 FINDINGS: SUPPORT DEVICES: None. HEART / MEDIASTINUM: The cardiac silhouette is enlarged.. LUNGS / PLEURA: Lungs are clear. No definite effusions. No pneumothorax. ADDITIONAL FINDINGS: No significant additional findings. IMPRESSION: 1. Cardiomegaly without other significant cardiothoracic abnormality. Signer Name: Jimmy Teague MD Signed: 08/10/2020 2:38 PM Workstation Name: [id number]
--- NOTE | 2020-08-10 14:53 | Emergency Department Report ---
ED Chest Pain HPI - General Chief Complaint: Chest Pain Stated Complaint: CHEST PAIN Time Seen by Provider: 08/10/20 14:18 Source: patient, EMS Mode of arrival: Stretcher Limitations: No Limitations - History of Present Illness Initial Comments: CC: "I had a little cold." HPI: This is an 79 yo female with hx of ESRD on HD T/R/Sa, HTN, CHF who presents with cough and chest pain. Patient states that she has been sick for 4 days. She has nonproductive cough. She asked the dialysis nurse to take her off machine because she wanted to go home to lay down. EMS called due to chest pain. Patient states that "I may have had some chest pain with the cough". Patient denies chest pain at this time. She received nitroglycerin vai EMS. Patient denies fever sore throat. MD Complaint: chest pain -: Gradual, days(s) (4) Onset: during rest Pain Location: substernal Severity: mild Quality: aching Consistency: intermittent, now resolved Improves With: nothing Worsens With: other (Cough) Other Symptoms: cough - Related Data Home Medications Medication Instructions Recorded Confirmed Last Taken Apixaban [Eliquis] 2.5 mg PO DAILY 09/07/18 12/01/18 09/06/18 Atorvastatin Calcium 40 mg PO DAILY 09/07/18 12/01/18 09/05/18 Febuxostat (Nf) [Uloric (Nf)] 40 mg PO DAILY 09/07/18 12/01/18 Unknown Levothyroxine Sodium 125 mcg PO DAILY 09/07/18 12/01/18 09/05/18 Olmesartan (Nf) [Benicar] 100 mg PO DAILY 09/07/18 12/01/18 09/05/18 Pantoprazole [Protonix TAB] 40 mg PO QDAY 09/07/18 12/01/18 Unknown Sevelamer Carbonate [Renvela] 800 mg PO TID 09/07/18 12/01/18 09/05/18 amLODIPine 10 mg PO DAILY 09/07/18 12/01/18 09/05/18 labetaloL [Labetalol 100mg TAB] 100 mg PO DAILY 09/07/18 12/01/18 09/05/18 Previous Rx's Medication Instructions Recorded Last Taken Type ALBUTEROL NEB's [Proventil 0.083% 2.5 mg IH Q4HRT PRN nebu 12/01/18 Unknown Rx NEBS] Acetaminophen [Acetaminophen TAB] 650 mg PO Q4H PRN tablet 12/01/18 Unknown Rx Levothyroxine [Synthroid] 125 mcg PO DAILY@0600 tablet 12/01/18 Unknown Rx Pantoprazole [Protonix TAB] 40 mg PO QDAY tablet 12/01/18 Unknown Rx Sevelamer Carbonate [Renvela] 800 mg PO TIDWM tablet 12/01/18 Unknown Rx amLODIPine 10 mg PO DAILY tablet 12/01/18 Unknown Rx labetaloL [Labetalol 100mg TAB] 100 mg PO BID tablet 12/01/18 Unknown Rx levoFLOXacin [Levaquin] 250 mg PO QDAY #7 tablet 12/01/18 Unknown Rx Allergies Allergy/AdvReac Type Severity Reaction Status Date / Time No Known Allergies Allergy Verified 09/04/18 10:58 Heart Score - HEART Score History: Slightly suspicious EKG: Non-specific Age: > 65 Risk factors: > 3 risk factors or hx of atherosclerotic disease Troponin: < normal limit HEART Score: 5 ED Review of Systems ROS: Stated complaint: CHEST PAIN Other details as noted in HPI Comment: All other systems reviewed and negative Constitutional: denies: fever, malaise Respiratory: cough. denies: shortness of breath, wheezing Cardiovascular: chest pain Gastrointestinal: denies: abdominal pain, nausea, vomiting Genitourinary: as per HPI Neurological: denies: headache ED Past Medical Hx - Past Medical History Previous Medical History?: Yes Hx Hypertension: Yes (no antihypertensives today) Hx Heart Attack/AMI: No Hx Congestive Heart Failure: Yes Hx Diabetes: Yes Hx Renal Disease: Yes Hx Sickle Cell Disease: Yes (Has disease or trait-not sure which one) Hx Seizures: No Hx Asthma: Yes (asymptomatic recently; albuterol prn) - Surgical History Hx Pacemaker: No Hx Internal Defibrillator: No - Social History Smoking Status: Never Smoker Substance Use Type: None - Medications Home Medications: Home Medications Medication Instructions Recorded Confirmed Last Taken Type Apixaban [Eliquis] 2.5 mg PO DAILY 09/07/18 12/01/18 09/06/18 History Atorvastatin Calcium 40 mg PO DAILY 09/07/18 12/01/18 09/05/18 History Febuxostat (Nf) [Uloric (Nf)] 40 mg PO DAILY 09/07/18 12/01/18 Unknown History Levothyroxine Sodium 125 mcg PO DAILY 09/07/18 12/01/18 09/05/18 History Olmesartan (Nf) [Benicar] 100 mg PO DAILY 09/07/18 12/01/18 09/05/18 History Pantoprazole [Protonix TAB] 40 mg PO QDAY 09/07/18 12/01/18 Unknown History Sevelamer Carbonate [Renvela] 800 mg PO TID 09/07/18 12/01/18 09/05/18 History amLODIPine 10 mg PO DAILY 09/07/18 12/01/18 09/05/18 History labetaloL [Labetalol 100mg TAB] 100 mg PO DAILY 09/07/18 12/01/18 09/05/18 H istory ALBUTEROL NEB's [Proventil 0.083% 2.5 mg IH Q4HRT PRN nebu 12/01/18 Unknown Rx NEBS] Acetaminophen [Acetaminophen TAB] 650 mg PO Q4H PRN tablet 12/01/18 Unknown Rx Levothyroxine [Synthroid] 125 mcg PO DAILY@0600 tablet 12/01/18 Unknown Rx Pantoprazole [Protonix TAB] 40 mg PO QDAY tablet 12/01/18 Unknown Rx Sevelamer Carbonate [Renvela] 800 mg PO TIDWM tablet 12/01/18 Unknown Rx amLODIPine 10 mg PO DAILY tablet 12/01/18 Unknown Rx labetaloL [Labetalol 100mg TAB] 100 mg PO BID tablet 12/01/18 Unknown Rx levoFLOXacin [Levaquin] 250 mg PO QDAY #7 tablet 12/01/18 Unknown Rx ED Physical Exam - General Limitations: No Limitations General appearance: alert, in no apparent distress, other (Pleasant, smiling, no acute distress) - Head Head exam: Present: atraumatic, normocephalic - Eye Eye exam: Present: normal appearance - ENT ENT exam: Present: mucous membranes moist - Neck Neck exam: Present: normal inspection, full ROM - Respiratory Respiratory exam: Present: normal lung sounds bilaterally. Absent: respiratory distress, wheezes, rales, rhonchi - Cardiovascular Cardiovascular Exam: Present: regular rate, normal rhythm, irregular rhythm. Absent: systolic murmur, diastolic murmur, rubs, gallop - GI/Abdominal GI/Abdominal exam: Present: soft, normal bowel sounds. Absent: distended, tenderness, guarding, rebound - Neurological Exam Neurological exam: Present: alert, oriented X3 - Psychiatric Psychiatric exam: Present: normal affect, normal mood - Skin Skin exam: Present: warm, dry, intact, normal color. Absent: rash ED Course Vital Signs 08/10/20 14:10 Temperature 98.0 F Pulse Rate 87 Respiratory 17 Rate Blood Pressure 176/91 O2 Sat by Pulse 100 Oximetry ED Medical Decision Making - Lab Data Result diagrams: 08/10/20 14:39 08/10/20 14:39 - EKG Data -: EKG Interpreted by Mn - EKG Data 08/10/20 15:29 EKG obtained 1522 EKG interpreted by ar EKG compared to previous EKGs obtained on 09/07/2008 and November 2008. Atrial fibrillation versus sinus arrhythmia with ventricular rate 90 bpm normal axis no ST elevation nonspecific T wave pattern - Radiology Data Radiology results: report reviewed CT head without contrast: Cardiomegaly without significant cardiothoracic abnormality - Medical Decision Making 1. Cough associated with chest pain: Atypical for ACS. She is currently chest pain-free. No fever. No shortness of breath. No concomitant symptoms to suggest COVID-19 infection. CBC chemistry unremarkable. Persistently elevated troponin attributed to renal disease. Normal potassium level. Patient did not exhibit any infectious symptoms in the emergency department. She did not have cough here during ED encounter. 2. Atrial fibrillation not seen on previous EKGs. I spoke with nurse practitioner Keesha associate [facility] nephrology group. She was able to confirm that patient indeed had history of atrial fibrillation. Critical care attestation.: If time is entered above; I have spent that time in minutes in the direct care of this critically ill patient, excluding procedure time. ED Disposition Clinical Impression: Chest pain, ESRD (end stage renal disease) on dialysis, History of atrial fibrillation, Cough Disposition: -01 TO HOME OR SELFCARE Is pt being admited?: No Does the pt Need Aspirin: No Condition: Stable Instructions: Chest Pain (ED)
[2020-08-10 15:17] LABS: Basophils # (Auto) 0.1 K/mm3 (0.0-0.1); Basophils % (Auto) 0.6 % (0.0-1.8); Eosinophils # (Auto) 0.4 K/mm3 (0.0-0.4); Eosinophils % (Auto) 4.3 % (0.0-4.3); Hemoglobin 12.7 gm/dl (10.1-14.3); Lymphocytes # (Auto) 2.1 K/mm3 (1.2-5.4); Lymphocytes % (Auto) 21.9 % (13.4-35.0); Mean Corpuscular HGB Conc 33 % (30-34); Mean Corpuscular Volume 100 fl (79-97); Monocytes % (Auto) 10.5 % (0.0-7.3); Platelet Count 230 K/mm3 (140-440); Red Blood Count 3.92 M/mm3 (3.65-5.03); Red Cell Distribution Width 16.4 % (13.2-15.2)
[2020-08-10 15:39] LABS: Albumin 3.7 g/dL (3.9-5); Calcium 9.2 mg/dL (8.4-10.2)
[2020-08-10 15:55] LABS: Chol/HDL Ratio 2.06 %
== END 2020-08-10 18:06 | disposition home or self-care (01) ==
LOC: ED 13:49
DX: E11.22 Type 2 diabetes mellitus with diabetic chronic kidney disease (principal); I13.2 Hypertensive heart and chronic kidney disease with heart failure and with stage 5 chronic kidney disease, or end stage renal disease; I50.9 Heart failure, unspecified; N18.6 End stage renal disease; I48.91 Unspecified atrial fibrillation; R07.89 Other chest pain; R05 Cough; J45.909 Unspecified asthma, uncomplicated; Z99.2 Dependence on renal dialysis; Z87.448 Personal history of other diseases of urinary system; Z79.899 Other long term (current) drug therapy
CPT/HCPCS: 36415; 71045; 80053; 80061; 84484; 85025; 93005